=== PATIENT | female | born 1975 | race Two or more races ===

== ENCOUNTER 2016-10-18 00:58 | Emergency (ER) | payer MEDICAID, OTHER ==
[2016-10-18] MEDS ORDERED: EPINEPHRINE INJ/PF 1 MG/1 ML AMPULE IM ONE ×2 (02:21→02:52)
[2016-10-18] MEDS ORDERED: HYDROXYZINE HCL 10 MG TABLET PO ONE (02:52)
[2016-10-18] MEDS ORDERED: PREDNISONE 20 MG TABLET PO ONE (03:14)
--- NOTE | 2016-10-18 03:20 | ER Document Report ---
ED General - General Chief Complaint: Hives Stated Complaint: POSSIBLE HIVES Notes: Patient is a 41-year-old female who presents with 3 days of diffuse urticaria. Notes the rash is over her bilateral upper and lower extremities as well as her trunk. Denies history of similar symptoms in the past. She's been trying Benadryl without improvement of her symptoms. No history of allergic reactions in the past. She denies any throat swelling, shortness of breath, nausea, vomiting, diarrhea, abdominal pain, lightheadedness, syncope, or sensation of throat swelling. She has not seen her primary care physician regarding today's concerns. Nothing improves or worsens her symptoms. TRAVEL OUTSIDE OF THE [place] IN LAST 30 DAYS: No - Related Data Allergies/Adverse Reactions: No Known Allergies Allergy (Unverified 10/29/11 21:11) Past Medical History - General Information source: Patient - Social History Smoking Status: Never Smoker Frequency of alcohol use: None Drug Abuse: None Lives with: Family Family History: Reviewed & Not Pertinent - Past Medical History Cardiac Medical History: Reports: Hx Hypertension Endocrine Medical History: Reports: Hx Diabetes Mellitus Type 2 Past Surgical History: Reports: Hx Section - x3, Hx Hysterectomy - Immunizations Hx Diphtheria, Pertussis, Tetanus Vaccination: No Review of Systems - Review of Systems Notes: Constitutional: Negative for fever. HENT: Negative for sore throat. Eyes: Negative for visual changes. Cardiovascular: Negative for chest pain. Respiratory: Negative for shortness of breath. Gastrointestinal: Negative for abdominal pain, vomiting or diarrhea. Genitourinary: Negative for dysuria. Musculoskeletal: Negative for back pain. Skin: Positive for diffuse urticaria Neurological: Negative for headaches, weakness or numbness. 10 point ROS negative except as marked above and in HPI. Physical Exam - Vital signs Vitals: Temp Pulse Resp BP Pulse Ox 97.5 F 112 H 14 148/93 H 95 10/18/16 01:04 10/18/16 01:04 10/18/16 01:04 10/18/16 01:04 10/18/16 01:04 Interpretation: Hypertensive, Tachycardic Notes: PHYSICAL EXAMINATION: GENERAL: Well-appearing, well-nourished and in no acute distress. HEAD: Atraumatic, normocephalic. EYES: Pupils equal round and reactive to light, extraocular movements intact, sclera anicteric, conjunctiva are normal. ENT: nares patent, oropharynx clear without exudates. Moist mucous membranes. NECK: Normal range of motion, supple without lymphadenopathy LUNGS: Breath sounds clear to auscultation bilaterally and equal. No wheezes rales or rhonchi. HEART: Regular rate and rhythm without murmurs ABDOMEN: Soft, nontender, normoactive bowel sounds. No guarding, no rebound. No masses appreciated. EXTREMITIES: Normal range of motion, no pitting or edema. No cyanosis. NEUROLOGICAL: No focal neurological deficits. Moves all extremities spontaneously and on command. PSYCH: Normal mood, normal affect. SKIN: Warm, Dry, normal turgor, diffuse urticaria. Course - Re-evaluation Re-evalutation: 10/18/16 03:23 Patient presents with hives without evidence of respiratory, cardiovascular, or GI involvement. She is not tachycardic but vitals otherwise within normal limits. No acute distress. Exam other than diffuse hives is unremarkable. Patient did not have any improvement of her symptoms with 2 attempts of IM epinephrine. She will be started on steroids and Atarax. I recommended that she follow-up with dermatology and provided return precautions.At this time will discharge with return precautions and follow-up recommendations. Verbal discharge instructions given a the bedside and opportunity for questions given. Medication warnings reviewed. Patient is in agreement with this plan and has verbalized understanding of return precautions and the need for primary care follow-up in the next 24-72 hours. - Vital Signs Vital signs: Temp Pulse Resp BP Pulse Ox 97.5 F 112 H 14 148/93 H 95 10/18/16 01:04 10/18/16 01:04 10/18/16 01:04 10/18/16 01:04 10/18/16 01:04 Discharge - Discharge Clinical Impression: Diffuse urticaria Condition: Good Disposition: HOME, SELF-CARE Additional Instructions: You were seen for hives. This appears to be allergic in origin. You are being started on steroids and Atarax. Please take as directed. IF YOU DEVELOP DIFFICULTY BREATHING, VOMITING, THROAT SWELLING, OR LIGHTHEADEDNESS CALL 911. Prescriptions: Hydroxyzine HCl [Atarax 50 mg Tablet] 50 mg PO Q6HP PRN #30 tablet PRN Reason: Prednisone [Deltasone 20 mg Tablet] 60 mg PO DAILY #15 tablet
[2016-10-18 03:36] VITALS: BP 134/82
== END 2016-10-18 03:37 | disposition home or self-care (01) ==
LOC: ER 00:58
DX: L50.9 Urticaria, unspecified (principal); E11.9 Type 2 diabetes mellitus without complications; I10 Essential (primary) hypertension
CPT/HCPCS: 99282; 96372; J0171; J7512

== ENCOUNTER 2016-10-29 19:55 | Emergency (ER) | payer SELFPAY ==
--- NOTE | 2016-10-29 21:29 | ER Document Report ---
ED Medical Screen (RME) - General Stated Complaint: EAR PAIN Notes: head cold for about two weeks with associated. nasal congestion, sinus pressure , nonproductive cough, but today within a couple of hours had new onset right ear pain with pressure, sharp pain. denies any drainage or blood. She states " if feels like its going to burst" denies fever, chills, prod cough, chest pain also c/o hives which she states are mild currently. OTC: claritin D, was previously on prednisone PMH: DM type 2, HTN TRAVEL OUTSIDE OF THE [place] IN LAST 30 DAYS: No - Related Data Allergies/Adverse Reactions: No Known Allergies Allergy (Unverified 10/29/11 21:11) Past Medical History - Past Medical History Cardiac Medical History: Reports: Hx Hypertension Endocrine Medical History: Reports: Hx Diabetes Mellitus Type 2 Past Surgical History: Reports: Hx Section - x3, Hx Hysterectomy - Immunizations Hx Diphtheria, Pertussis, Tetanus Vaccination: No Physical Exam - Vital signs Vitals: Temp Pulse Resp BP Pulse Ox 98.3 F 103 H 18 149/96 H 97 10/29/16 21:17 10/29/16 21:17 10/29/16 21:17 10/29/16 21:17 10/29/16 21:17 Course - Vital Signs Vital signs: Temp Pulse Resp BP Pulse Ox 98.3 F 103 H 18 149/96 H 97 10/29/16 21:17 10/29/16 21:17 10/29/16 21:17 10/29/16 21:17 10/29/16 21:17
[2016-10-29] MEDS ORDERED: IBUPROFEN 600 MG TABLET PO ONE (21:30)
[2016-10-29] MEDS ORDERED: AZITHROMYCIN 250 MG TABLET PO ONE (23:11)
[2016-10-29] MEDS ORDERED: PREDNISONE 20 MG TABLET PO ONE (23:11)
[2016-10-29] MEDS ORDERED: DIPHENHYDRAMINE HCL 50 MG CAPSULE PO ONE (23:11)
[2016-10-29] MEDS ORDERED: FAMOTIDINE 20 MG TABLET PO ONE (23:11)
--- NOTE | 2016-10-29 23:18 | ER Document Report ---
ED General - General Chief Complaint: Cold Symptoms Stated Complaint: EAR PAIN Mode of Arrival: Ambulatory Information source: Patient Notes: 41-year-old female presents with 2 separate complaints. Patient notes she has had hives for 2 and half weeks, seen here and treated with Atarax and steroids symptoms improved but then returned after steroids was finished. Unsure causes. Today patient began having right ear pain TRAVEL OUTSIDE OF THE [place] IN LAST 30 DAYS: No - HPI Onset: Just prior to arrival Onset/Duration: Sudden Quality of pain: Achy Severity: Mild Pain Level: 1 Associated symptoms: Earache Exacerbated by: Denies Relieved by: Denies Similar symptoms previously: Yes Recently seen / treated by doctor: Yes - Related Data Allergies/Adverse Reactions: No Known Allergies Allergy (Verified 10/29/16 21:26) Past Medical History - Social History Smoking Status: Never Smoker Cigarette use (# per day): No Chew tobacco use (# tins/day): No Smoking Education Provided: No Drug Abuse: None Family History: Reviewed & Not Pertinent Patient has suicidal ideation: No Patient has homicidal ideation: No - Past Medical History Cardiac Medical History: Reports: Hx Hypertension Endocrine Medical History: Reports: Hx Diabetes Mellitus Type 2 Renal/ Medical History: Denies: Hx Peritoneal Dialysis Past Surgical History: Reports: Hx Section - x3, Hx Hysterectomy - Immunizations Hx Diphtheria, Pertussis, Tetanus Vaccination: No Review of Systems - Review of Systems Notes: REVIEW OF SYSTEMS: CONSTITUTIONAL : Denies fever, chills, or sweats. Denies recent illness. EENT: Right ear pain CARDIOVASCULAR: Denies chest pain. Denies palpitations or racing or irregular heart beat. Denies ankle edema. RESPIRATORY: Denies cough, cold, or chest congestion. Denies shortness of breath, difficulty breathing, or wheezing. GASTROINTESTINAL: Denies abdominal pain or distention. Denies nausea, vomiting , or diarrhea. Denies blood in vomitus, stools, or per rectum. Denies black, tarry stools. Denies constipation. GENITOURINARY: Denies difficulty urinating, painful urination, burning, frequency, blood in urine, or discharge. FEMALE GENITOURINARY: Denies vaginal bleeding, heavy or abnormal periods, irregular periods. Denies vaginal discharge or odor. MUSCULOSKELETAL: Denies back or neck pain or stiffness. Denies joint pain or swelling. SKIN: Hives on body HEMATOLOGIC : Denies easy bruising or bleeding. LYMPHATIC: Denies swollen, enlarged glands. NEUROLOGICAL: Denies confusion or altered mental status. Denies passing out or loss of consciousness. Denies dizziness or lightheadedness. Denies headache. Denies weakness or paralysis or loss of use of either side. Denies problems with gait or speech. Denies sensory loss, numbness, or tingling. Denies seizures. PSYCHIATRIC: Denies anxiety or stress. Denies depression, suicidal ideation, or homicidal ideation. ALL OTHER SYSTEMS REVIEWED AND NEGATIVE. Dictation was performed using [employer] voice recognition software PHYSICAL EXAMINATION: GENERAL: Well-appearing, well-nourished and in no acute distress. HEAD: Atraumatic, normocephalic. EYES: Pupils equal round and reactive to light, extraocular movements intact, conjunctiva are normal. ENT: Right TM pressure goal NECK: Normal range of motion, supple without lymphadenopathy LUNGS: Breath sounds clear to auscultation bilaterally and equal. No wheezes rales or rhonchi. HEART: Regular rate and rhythm without murmurs ABDOMEN: Soft, nontender, nondistended abdomen. No guarding, no rebound. No masses appreciated. Female : deferred Musculoskeletal: Normal range of motion, no pitting or edema. No cyanosis. NEUROLOGICAL: Cranial nerves grossly intact. Normal speech, normal gait. Normal sensory, motor exams PSYCH: Normal mood, normal affect. SKIN generalized hives Physical Exam - Vital signs Vitals: Temp Pulse Resp BP Pulse Ox 98.3 F 103 H 18 149/96 H 97 10/29/16 21:17 10/29/16 21:17 10/29/16 21:17 10/29/16 21:17 10/29/16 21:17 Course - Re-evaluation Re-evalutation: 10/29/16 23:21 Patient noted to have 2 separate complaints, she will be treated with medication for allergic reaction as well as antibiotics for ear infection patient given follow-up with urgent care for allergy testing After performing a Medical Screening Examination, I estimate there is LOW risk for AIRWAY COMPROMISE, ANAPHYLAXIS, CELLULITIS, EPIGLOTTIS, or NECROTIZING FASCIITIS, thus I consider the discharge disposition reasonable. Also, there is no evidence or peritonitis, sepsis, or toxicity. The patient and I have discussed the diagnosis and risks, and we agree with discharging home with close follow-up with the understanding that symptoms and presentations can change. We also discussed returning to the Emergency Department immediately if new or worsening symptoms occur. We have discussed the symptoms which are most concerning (e.g., difficulty breathing or swallowing, fever, changing or worsening pain) that necessitate immediate return. - Vital Signs Vital signs: Temp Pulse Resp BP Pulse Ox 98.3 F 103 H 18 149/96 H 97 10/29/16 21:17 10/29/16 21:17 10/29/16 21:17 10/29/16 21:17 10/29/16 21:17 Discharge - Discharge Clinical Impression: Hives Otitis media Qualifiers: Otitis media type: suppurative Laterality: right Chronicity: acute Recurrence: not specified as recurrent Spontaneous tympanic membrane rupture: without spontaneous rupture Qualified Code(s): H66.001 - Acute suppurative otitis media without spontaneous rupture of ear drum, right ear Condition: Stable Disposition: HOME, SELF-CARE Instructions: Otitis Media ([facility]) Additional Instructions: You have been given follow up instructions including low cost follow up with one of the local primary care offices. Follow up with them tomorrow for further care and reevaluation. Return immediately if symptoms worsen Prescriptions: Azithromycin 250 mg PO DAILY #4 tablet Azithromycin [Zithromax 250 mg Tablet] 250 mg PO DAILY #4 tablet Diphenhydramine HCl [Benadryl 50 mg Capsule] 1 cap PO Q6 PRN #20 capsule PRN Reason: Famotidine [Pepcid 20 mg Tablet] 20 mg PO DAILY #5 tablet Famotidine [Pepcid 20 mg Tablet] 20 mg PO DAILY #10 tablet Prednisone [Deltasone 20 mg Tablet] 3 tab PO DAILY 5 Days
[2016-10-29 23:46] VITALS: BP 129/88
== END 2016-10-29 23:44 | disposition home or self-care (01) ==
LOC: ER 19:55
DX: H66.001 Acute suppurative otitis media without spontaneous rupture of ear drum, right ear (principal); L50.9 Urticaria, unspecified
CPT/HCPCS: 99282; J7512

== ENCOUNTER 2016-11-20 08:20 | Emergency (ER) | payer BC ==
[2016-11-20 09:42] LABS: APPEARANCE,URINE CLEAR; BILIRUBIN,URINE NEGATIVE (NEGATIVE); GLUCOSE, URINE >=500 mg/dL (NEGATIVE); KETONES,URINE 80 mg/dL (NEGATIVE); LEUKOCYTE ESTERASE,URINE NEGATIVE (NEGATIVE); NITRITE,URINE NEGATIVE (NEGATIVE); PROTEIN,URINE NEGATIVE (NEGATIVE); URINE SPECIFIC GRAVITY 1.027; UROBILINOGEN,URINE NEGATIVE mg/dL (<2.0)
[2016-11-20 09:52] LABS: HEMATOCRIT 38.8 % (36.0-47.0); HEMOGLOBIN 13.1 g/dL (12.0-15.5); HGB HCT DIFFERENCE 0.5; MEAN CORPUSCULAR HEMOGLOBIN 27.7 pg (27.0-33.4); MEAN CORPUSCULAR HGB CONC 33.8 g/dL (32.0-36.0); MEAN CORPUSCULAR VOLUME 82 fl (80-97); RED BLOOD COUNT 4.74 10^6/uL (3.72-5.28); RED CELL DISTRIBUTION WIDTH 13.5 % (11.5-14.0); WHITE BLOOD COUNT 9.3 10^3/uL (4.0-10.5)
--- NOTE | 2016-11-20 10:18 | ER Document Report ---
ED General - General Chief Complaint: Chest Pain Stated Complaint: CHEST PAIN Mode of Arrival: Ambulatory Information source: Patient Notes: 41-year-old female presents with complaints of shortness of breath, heart racing ,mnausea, fevers and chills. pt notes symtpoms started since yesterday night, denies any dvt or pe risk factors TRAVEL OUTSIDE OF THE [place] IN LAST 30 DAYS: No - HPI Onset: Yesterday Onset/Duration: Sudden Quality of pain: Sharp Severity: Mild Pain Level: 1 Associated symptoms: Chills, Fever, Nausea, Shortness of breath Exacerbated by: Denies Relieved by: Denies Similar symptoms previously: No Recently seen / treated by doctor: Yes - Related Data Allergies/Adverse Reactions: No Known Allergies Allergy (Verified 11/20/16 08:59) Past Medical History - Social History Smoking Status: Never Smoker Cigarette use (# per day): No Chew tobacco use (# tins/day): No Smoking Education Provided: No Frequency of alcohol use: None Drug Abuse: None Family History: Reviewed & Not Pertinent Patient has suicidal ideation: No Patient has homicidal ideation: No - Past Medical History Cardiac Medical History: Reports: Hx Hypertension Endocrine Medical History: Reports: Hx Diabetes Mellitus Type 2 Renal/ Medical History: Denies: Hx Peritoneal Dialysis Past Surgical History: Reports: Hx Section - x3, Hx Hysterectomy - Immunizations Hx Diphtheria, Pertussis, Tetanus Vaccination: No Review of Systems - Review of Systems Notes: REVIEW OF SYSTEMS: CONSTITUTIONAL : admikts to fevers and cihlls EENT: Denies eye, ear, throat, or mouth pain or symptoms. Denies nasal or sinus congestion or discharge. Denies throat, tongue, or mouth swelling or difficulty swallowing. CARDIOVASCULAR: admits ot chest pain, sob RESPIRATORY: Admits shortness of breath chest pain GASTROINTESTINAL: Denies abdominal pain or distention. Denies nausea, vomiting , or diarrhea. Denies blood in vomitus, stools, or per rectum. Denies black, tarry stools. Denies constipation. GENITOURINARY: Denies difficulty urinating, painful urination, burning, frequency, blood in urine, or discharge. FEMALE GENITOURINARY: Denies vaginal bleeding, heavy or abnormal periods, irregular periods. Denies vaginal discharge or odor. MUSCULOSKELETAL: Denies back or neck pain or stiffness. Denies joint pain or swelling. SKIN: Denies rash, lesions or sores. HEMATOLOGIC : Denies easy bruising or bleeding. LYMPHATIC: Denies swollen, enlarged glands. NEUROLOGICAL: Denies confusion or altered mental status. Denies passing out or loss of consciousness. Denies dizziness or lightheadedness. Denies headache. Denies weakness or paralysis or loss of use of either side. Denies problems with gait or speech. Denies sensory loss, numbness, or tingling. Denies seizures. PSYCHIATRIC: Denies anxiety or stress. Denies depression, suicidal ideation, or homicidal ideation. ALL OTHER SYSTEMS REVIEWED AND NEGATIVE. Dictation was performed using [employer] voice recognition software PHYSICAL EXAMINATION: GENERAL: Well-appearing, well-nourished and in no acute distress. HEAD: Atraumatic, normocephalic. EYES: Pupils equal round and reactive to light, extraocular movements intact, conjunctiva are normal. ENT: Nares patent, oropharynx clear without exudates. Moist mucous membranes. NECK: Normal range of motion, supple without lymphadenopathy LUNGS: Breath sounds clear to auscultation bilaterally and equal. No wheezes rales or rhonchi. HEART: tachycardic ABDOMEN: Soft, nontender, nondistended abdomen. No guarding, no rebound. No masses appreciated. Female : deferred Musculoskeletal: Normal range of motion, no pitting or edema. No cyanosis. 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 SKIN: Warm, Dry, normal turgor, no rashes or lesions noted. Physical Exam - Vital signs Vitals: Temp Pulse Resp BP Pulse Ox 98.1 F 141 H 22 H 152/90 H 97 11/20/16 08:59 11/20/16 08:59 11/20/16 08:59 11/20/16 08:59 11/20/16 08:59 Course - Re-evaluation Re-evalutation: 11/20/16 10:18 Patient will be sent for CT of his chest 11/20/16 13:59 Patient was given 3 L of fluid, heart rate has gone from 140s down to 110, she states she feels much better, headache is resolved. Patient otherwise is in no distress I will discharge her home at this time Patient instructed to return immediately if there are any other concerns After performing a Medical Screening Examination, I estimate there is LOW risk for ACUTE CORONARY SYNDROME, RESPIRATORY FAILURE, SEPSIS OR MENINGITIS, thus I consider the discharge disposition reasonable. The patient and I have discussed the diagnosis and risks, and we agree with discharging home with close follow- up. We also discussed returning to the Emergency Department immediately if new or worsening symptoms occur. We have discussed the symptoms which are most concerning (e.g., changing or worsening pain, trouble swallowing or breathing, neck stiffness, fever) that necessitate immediate return. - Vital Signs Vital signs: Temp Pulse Resp BP Pulse Ox 98.1 F 141 H 20 128/78 H 95 11/20/16 08:59 11/20/16 08:59 11/20/16 13:00 11/20/16 12:00 11/20/16 13:00 - Laboratory Result Diagrams: 11/20/16 09:20 11/20/16 09:20 Laboratory results interpreted by me: 11/20/16 11/20/16 11/20/16 09:20 09:20 09:20 Band Neutrophils % 10 H Lymphocytes % (Manual) 8 L Metamyelocytes % 2 H Myelocytes % 1 H Abs Neuts (Manual) 8.3 H Sodium 130.3 L Chloride 95 L Carbon Dioxide 19 L BUN 6 L Creatinine 0.37 L Glucose 373 H Urine Glucose (UA) >=500 H Urine Ketones 80 H Discharge - Discharge Clinical Impression: Tachycardia URI (upper respiratory infection) Qualifiers: URI type: unspecified viral URI Qualified Code(s): J06.9 - Acute upper respiratory infection, unspecified; B97.89 - Other viral agents as the cause of diseases classified elsewhere Headache Qualifiers: Headache type: unspecified Headache chronicity pattern: acute headache Intractability: intractable Qualified Code(s): R51 - Headache Condition: Stable Disposition: HOME, SELF-CARE Instructions: Upper Respiratory Illness ([facility]) Referrals: JOSE COLLINS MD [Primary Care Provider] - Follow up tomorrow
[2016-11-20 10:20] LABS: ALANINE AMINOTRANSFERASE 31 U/L (9-52); ALBUMIN 4.2 g/dL (3.5-5.0); ALKALINE PHOSPHATASE 87 U/L (38-126); ANION GAP 16 (5-19); ASPARTATE AMINO TRANSFERASE 25 U/L (14-36); BILIRUBIN,TOTAL 1.2 mg/dL (0.2-1.3); BLOOD UREA NITROGEN 6 mg/dL (7-20); CALCIUM 9.3 mg/dL (8.4-10.2); CARBON DIOXIDE 19 mmol/L (22-30); CHLORIDE 95 mmol/L (98-107); CREATININE RESULT 0.37 mg/dL (0.52-1.25); GLUCOSE 373 mg/dL (75-110); POTASSIUM 4.4 mmol/L (3.6-5.0); SODIUM 130.3 mmol/L (137-145); TOTAL PROTEIN 7.2 g/dL (6.3-8.2)
[2016-11-20 10:23] LABS: BAND NEUTROPHILS % (MANUAL) 10 % (3-5); BASOPHILS % (MANUAL) 0 % (0-2); EOSINOPHILS % (MANUAL) 0 % (0-6); LYMPHOCYTES % (MANUAL) 8 % (13-45); NUCLEATED RED BLOOD CELLS 1 /100 WBC (0); TOTAL CELLS COUNTED 100
[2016-11-20 10:25] LABS: RBC MORPHOLOGY COMMENT NORMO-CYTIC/CHROMIC; TOXIC GRANULATION SLIGHT; TOXIC VACUOLATION PRESENT
--- NOTE | 2016-11-20 11:03 | EKG REPORT ---
SEVERITY:- OTHERWISE NORMAL ECG - SINUS TACHYCARDIA : Confirmed by: Jovita Soliman 20-Nov-2016 11:02:19
[2016-11-20] MEDS ORDERED: DIPHENHYDRAMINE HCL 50 MG/ML VIAL IV ONE (12:00)
[2016-11-20] MEDS ORDERED: NORMAL SALINE 1000 ML 1,000 ML IV PRN (12:00)
[2016-11-20] MEDS ORDERED: PROCHLORPERAZINE EDISYLATE INJ 10 MG/2 ML VIAL IV ONE (12:00)
[2016-11-20] MEDS ORDERED: KETOROLAC TROMETHAMINE INJ/PF 30 MG/1 ML SDV IV ONE (12:00)
[2016-11-20 15:02] VITALS: BP 105/72
[2016-11-23 15:11] LABS: PATH REVIEW PATHOLOGIST REVIEWED
== END 2016-11-20 15:02 | disposition home or self-care (01) ==
LOC: ER 08:20
DX: J06.9 Acute upper respiratory infection, unspecified (principal); B97.89 Other viral agents as the cause of diseases classified elsewhere; R00.0 Tachycardia, unspecified; R07.9 Chest pain, unspecified; R11.0 Nausea; R50.9 Fever, unspecified; R06.02 Shortness of breath; I10 Essential (primary) hypertension; E11.9 Type 2 diabetes mellitus without complications; Z90.710 Acquired absence of both cervix and uterus
CPT/HCPCS: 93005; 99285; 96361; 96374; 96375; 36415; 87070; 87880; 84443; 85025; 81025; 80053; 81001; 87804; 71020; 70450; 71275; 93010; J1200; J1885; J0780; J7030

== ENCOUNTER 2016-11-25 21:34 | Inpatient (IN) | payer BC ==
[2016-11-25] MEDS ORDERED: ASPIRIN 81 MG TABLET, CHEWABLE PO ONE (21:54)
--- NOTE | 2016-11-25 21:54 | ER Document Report ---
ED Medical Screen (RME) - General Stated Complaint: CHEST PAIN,SHORTNESS OF BREATH Time seen by provider: 21:50 Mode of Arrival: Wheelchair Information source: Patient Notes: 41 yo female presents to ed for chest pain severe on the left side, shortness of breath started around 2030. States feels like something is squeezing her heart and will not let go. LMP hysterectomy. States she was seen on 11/20/16 and was told the pain was viral infection. States this is the 5th time to ed this year. Patient was given a screening exam; xray, ekg, and labs ordered. Aspirin given in RME. TRAVEL OUTSIDE OF THE [place] IN LAST 30 DAYS: No - Related Data Allergies/Adverse Reactions: No Known Allergies Allergy (Verified 11/20/16 08:59) Past Medical History - Past Medical History Cardiac Medical History: Reports: Hx Hypertension Endocrine Medical History: Reports: Hx Diabetes Mellitus Type 2 Renal/ Medical History: Denies: Hx Peritoneal Dialysis Past Surgical History: Reports: Hx Section - x3, Hx Hysterectomy - Immunizations Hx Diphtheria, Pertussis, Tetanus Vaccination: No
[2016-11-25 22:15] LABS: HEMATOCRIT 37.2 % (36.0-47.0); HEMOGLOBIN 12.3 g/dL (12.0-15.5); HGB HCT DIFFERENCE -0.3; MEAN CORPUSCULAR HEMOGLOBIN 27.2 pg (27.0-33.4); MEAN CORPUSCULAR VOLUME 83 fl (80-97); RED BLOOD COUNT 4.51 10^6/uL (3.72-5.28); RED CELL DISTRIBUTION WIDTH 13.7 % (11.5-14.0); WHITE BLOOD COUNT 7.2 10^3/uL (4.0-10.5)
[2016-11-25 22:21] LABS: PROTHROMBIN TIME 12.3 SEC (11.4-15.4)
[2016-11-25 22:22] LABS: PARTIAL THROMBOPLASTIN TIME 27.1 SEC (23.5-35.8)
[2016-11-25 22:35] LABS: ALANINE AMINOTRANSFERASE 26 U/L (9-52); ALBUMIN 3.7 g/dL (3.5-5.0); ALKALINE PHOSPHATASE 119 U/L (38-126); ANION GAP 16 (5-19); ASPARTATE AMINO TRANSFERASE 8 U/L (14-36); BILIRUBIN,TOTAL 0.7 mg/dL (0.2-1.3); BLOOD UREA NITROGEN 7 mg/dL (7-20); CALCIUM 9.1 mg/dL (8.4-10.2); CARBON DIOXIDE 14 mmol/L (22-30); CHLORIDE 99 mmol/L (98-107); CREATININE RESULT 0.52 mg/dL (0.52-1.25); LIPASE 76.1 U/L (23-300); MAGNESIUM 1.8 mg/dL (1.6-2.3); POTASSIUM 4.1 mmol/L (3.6-5.0); TOTAL PROTEIN 6.9 g/dL (6.3-8.2)
[2016-11-25 22:37] LABS: CREATINE KINASE < 20 U/L (30-135)
[2016-11-25 22:44] LABS: CREATINE KINASE MB < 0.22 ng/mL (<4.55); TROPONIN I < 0.012 ng/mL
[2016-11-25 22:45] LABS: BAND NEUTROPHILS % (MANUAL) 3 % (3-5); BASOPHILS % (MANUAL) 0 % (0-2); EOSINOPHILS % (MANUAL) 1 % (0-6); LYMPHOCYTES % (MANUAL) 10 % (13-45); TOTAL CELLS COUNTED 100
[2016-11-25 22:47] LABS: POLYCHROMASIA SLIGHT; TOXIC GRANULATION SLIGHT
[2016-11-25 22:52] LABS: GLUCOSE 535 mg/dL (75-110)
[2016-11-25] MEDS ORDERED: NORMAL SALINE 1000 ML 1,000 ML IV PRN (22:53)
[2016-11-25] MEDS ORDERED: INSULIN REG, HUMAN 100 UNIT/ML 3 ML VIAL (PYX) SUBCUT ONE (23:50)
[2016-11-25] MEDS ORDERED: MORPHINE SULFATE 10 MG/ML INJ IV ONE (23:51)
[2016-11-26] MEDS ORDERED: NORMAL SALINE 100 ML with INSULIN REGULAR, HUMAN 100 UNIT IV PRN ×4 (00:24→08:40)
[2016-11-26] MEDS ORDERED: DEXTROSE 40% GEL 15 GM TUBE PO PRN ×5 (00:24→18:17)
[2016-11-26] MEDS ORDERED: GLUCAGON,HUMAN RECOMB 1 MG INJ IM PRN ×3 (00:24→18:17)
[2016-11-26] MEDS ORDERED: DEXTROSE 50%-WATER 25 GM/50 ML DISP.SYRIN IV PRN ×4 (00:24→08:40)
--- NOTE | 2016-11-26 01:00 | ER Document Report ---
ED General - General Chief Complaint: Chest Pain Stated Complaint: CHEST PAIN,SHORTNESS OF BREATH Mode of Arrival: Wheelchair Notes: Patient is a 41-year-old female presents with complaint of chest pain and tachycardia and not feeling well. She initially started out with hives and upper respiratory type symptoms that started October 18. She was treated with tapering steroids over the course of 2 weeks. The hives resolved. She then started having chest pain. She was seen here for chest pain [address] angios obtain which was negative. She is discharged home. Her chest pain is continued recur and she is feeling more weak and unwell. She presents today with his symptoms or not improving. She did see her primary care doctor placed her on Xanax which she says just made her feel unwell did not help her symptoms. Chest pain is worse when she lays flat. No fevers. No other complaints this time. She did hold her metformin for [address] scan. She restarted the metformin Wednesday night and has been taking ever since. Last time she had steroid was well over a week ago. No history coronary disease. No other complaints this time. TRAVEL OUTSIDE OF THE [place] IN LAST 30 DAYS: No - Related Data Allergies/Adverse Reactions: No Known Allergies Allergy (Verified 11/20/16 08:59) Past Medical History - General Information source: Patient - Social History Smoking Status: Never Smoker Frequency of alcohol use: Rare Drug Abuse: None Family History: Reviewed & Not Pertinent Patient has suicidal ideation: No Patient has homicidal ideation: No - Past Medical History Cardiac Medical History: Reports: Hx Hypertension Endocrine Medical History: Reports: Hx Diabetes Mellitus Type 2 Renal/ Medical History: Denies: Hx Peritoneal Dialysis Past Surgical History: Reports: Hx Section - x3, Hx Hysterectomy - Immunizations Hx Diphtheria, Pertussis, Tetanus Vaccination: No Review of Systems - Review of Systems Notes: My Normal Review Basic REVIEW OF SYSTEMS: CONSTITUTIONAL : Denies fever, chills, or sweats. Denies recent illness. EENT: Denies eye, ear, throat, or mouth pain or symptoms. Denies nasal or sinus congestion. CARDIOVASCULAR: Has chest pain RESPIRATORY: Some difficulty breathing. GASTROINTESTINAL: Denies abdominal pain. Denies nausea, vomiting, or diarrhea. Denies constipation. Last BM: MUSCULOSKELETAL: Denies neck or back pain or joint pain or swelling. SKIN: Denies rash or skin lesions. NEUROLOGICAL: Denies altered mental status or loss of consciousness. Denies headache. Denies weakness or paralysis or loss of use of either side. Denies problems with gait or speech. Denies sensory or motor loss. ALL OTHER SYSTEMS REVIEWED AND NEGATIVE. Physical Exam - Vital signs Vitals: Pulse Pulse Ox 122 H 100 11/25/16 21:49 11/25/16 21:49 - Notes Notes: General Appearance: Well nourished, alert, cooperative, no acute distress, no obvious discomfort. Weight appearing Vitals: reviewed, See vital signs table. Head: no swelling or tenderness to the head Eyes: PERRL, EOMI, Conjuctiva clear Mouth: No decreasd moisture Neck: Supple, no neck tenderness, No thyromegaly Lungs: No wheezing, No rales, No rhonci, No accessory muscle use, good air exchange bilaterally. Heart: Tachycardic rate, Regular rythm, No murmur, no rub Abdomen: Normal BS, soft, No rigidity, No abdominal tenderness, No guarding, no rebound, no abdominal masses, no organomegaly Extremities: strength 5/5 in all extremities, good pulses in all extremities, no swelling or tenderness in the extremities, no edema. Skin: warm, dry, appropriate color, no rash Neuro: speech clear, oriented x 3, normal affect, responds appropriately to questions. Course - Vital Signs Vital signs: Temp Pulse Resp BP Pulse Ox 97.6 F 123 H 20 125/77 99 11/25/16 21:54 11/25/16 21:54 11/25/16 21:54 11/25/16 21:54 11/25/16 21:54 - Laboratory Result Diagrams: 11/25/16 22:00 11/25/16 22:00 Laboratory results interpreted by me: 11/25/16 11/25/16 22:00 22:00 Lymphocytes % (Manual) 10 L Metamyelocytes % 1 H Sodium 129.0 L Carbon Dioxide 14 L Glucose 535 H* AST 8 L Creatine Kinase < 20 L - EKG Interpretation by Me Additional EKG results interpreted by me: 11/26/16 01:00 EKG is reviewed and interpreted by me. EKG shows sinus tachycardia with rate of [address] segment elevation or depression. No ischemic T wave inversions. DC level, QRS duration, QTC intervals are within normal range. No old EKG for comparison at this time. - Transfer of Care Notes: 11/26/16 01:00 This time I do not know the exact cause of patient's chest pain shortness of breath. Do not suspect coronary disease. This is her second negative troponin and 5 days. I suspect that she could have the potential for cardiomyopathy or pericarditis resulting from her recent illness. I'm also concerned that she's hyperglycemic and acidotic. She does not have an anion gap however her CO2 is only 14 and she's ketones in the urine. She could have some hyperglycemia from her steroid use; however, this was over a week ago and her sugar was actually much lower a few days ago as compared to now. She could also have some hyperglycemia due to the recent hold of her metformin from having a CT angio performed. I think is appropriate to admit her and give her fluids as well as insulin drip. I did do a bedside ultrasound showed no evidence of pericardial effusion. EKG doesn't show any ischemic changes. I did speak with the hospitalist who agrees in that the patient. Dictation of this chart was performed using voice recognition software; therefore, there may be some unintended grammatical errors. Discharge - Discharge Clinical Impression: Hyperglycemia, Metabolic acidosis, Tachycardia Chest pain Qualifiers: Chest pain type: unspecified Qualified Code(s): R07.9 - Chest pain, unspecified Condition: Stable Disposition: ADMITTED OBSERVATION Admitting Provider: Hospitalist Unit Admitted: IMCU Referrals: JOSE COLLINS MD [Primary Care Provider] - Follow up as needed
[2016-11-26 01:21] LABS: APPEARANCE,URINE CLEAR; BILIRUBIN,URINE NEGATIVE (NEGATIVE); GLUCOSE, URINE >=500 mg/dL (NEGATIVE); KETONES,URINE 80 mg/dL (NEGATIVE); LEUKOCYTE ESTERASE,URINE NEGATIVE (NEGATIVE); NITRITE,URINE NEGATIVE (NEGATIVE); PROTEIN,URINE NEGATIVE (NEGATIVE); URINE SPECIFIC GRAVITY 1.028; UROBILINOGEN,URINE NEGATIVE mg/dL (<2.0)
[2016-11-26 02:16] LABS: URINE BARBITURATES SCREEN NEGATIVE; URINE METHADONE SCREEN NEGATIVE; URINE OPIATES LOW NEGATIVE; URINE PHENCYCLIDINE SCREEN NEGATIVE
[2016-11-26] MEDS ORDERED: NORMAL SALINE 1000 ML 1,000 ML IV PRN (04:47)
[2016-11-26 05:45] LABS: ANION GAP 13 (5-19); BLOOD UREA NITROGEN 5 mg/dL (7-20); CALCIUM 8.3 mg/dL (8.4-10.2); CARBON DIOXIDE 13 mmol/L (22-30); CHLORIDE 107 mmol/L (98-107); CREATININE RESULT 0.36 mg/dL (0.52-1.25); GLUCOSE 268 mg/dL (75-110); POTASSIUM 3.4 mmol/L (3.6-5.0); SODIUM 133.2 mmol/L (137-145)
[2016-11-26] MEDS ORDERED: POTASSI CL 20 MEQ/D5NS 1L 20 MEQ/1,000 ML RTUINJ IV PRN (05:54)
[2016-11-26] MEDS ORDERED: RINGERS SOLUTION,LACTATED 2,000 ML IV ONE (05:56)
[2016-11-26] MEDS ORDERED: POTASSI CL 20 MEQ/50 ML RIDER 20 MEQ/50 ML RTUPB IV ONE (05:56)
[2016-11-26 07:09] LABS: HEMATOCRIT 29.8 % (36.0-47.0); HEMOGLOBIN 10.3 g/dL (12.0-15.5); HGB HCT DIFFERENCE 1.1; MEAN CORPUSCULAR HEMOGLOBIN 27.9 pg (27.0-33.4); MEAN CORPUSCULAR HGB CONC 34.5 g/dL (32.0-36.0); MEAN CORPUSCULAR VOLUME 81 fl (80-97); RED BLOOD COUNT 3.69 10^6/uL (3.72-5.28); RED CELL DISTRIBUTION WIDTH 13.6 % (11.5-14.0); WHITE BLOOD COUNT 7.8 10^3/uL (4.0-10.5)
[2016-11-26 07:42] LABS: BAND NEUTROPHILS % (MANUAL) 3 % (3-5); BASOPHILS % (MANUAL) 0 % (0-2); EOSINOPHILS % (MANUAL) 0 % (0-6); LYMPHOCYTES % (MANUAL) 12 % (13-45); TOTAL CELLS COUNTED 100
[2016-11-26 07:43] LABS: POLYCHROMASIA SLIGHT
[2016-11-26] MEDS ORDERED: INSULIN REG, HUMAN 100 UNIT/ML 3 ML VIAL (PYX) ONE (07:58)
--- NOTE | 2016-11-26 08:27 | EKG REPORT ---
SEVERITY:- OTHERWISE NORMAL ECG - SINUS TACHYCARDIA : Confirmed by: Niall Clay MD 26-Nov-2016 08:26:36
[2016-11-26] MEDS ORDERED: POTASSI CL 20 MEQ/50 ML RIDER 50 ML IV ONE (08:46)
[2016-11-26] MEDS ORDERED: MAG HYDROX/AL HYDROX/SIMETH SUSP 30 ML UDCUP PO PRN (08:47)
[2016-11-26] MEDS ORDERED: PROMETHAZINE HCL INJ 25 MG/1 ML VIAL IV PRN (08:56)
--- NOTE | 2016-11-26 09:46 | PDOC H&P ---
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 Patient has been discussed with emergency room physician who evaluated the patient. Current complaint is that of a mostly sharp left-sided chest pain that radiates to the right side and through to her back with associated mild shortness of breath and mild tachycardia. Pain Increases with cough and certain movements. States she finds it difficult to take a deep breath. Nausea but no vomiting. Rare cough. Bedside ultrasound by the emergency room physician failed to reveal any evidence of pericardial effusion. Was seen in the emergency room on the third of this month for similar but at that time a bit more right-sided chest pain. Workup at that time included an unremarkable CT angiogram of the chest. Pain has persisted since then, but is a bit more left-sided in origin. Subjective fever on the third of this month, but none since then. A bit of a difficult historian at times. No known personal history of cardiac disease. No prior myocardial infarction or congestive heart failure. No history of pulmonary embolus or DVT. No recent long trip with prolonged inactivity, or unusual lower extremity swelling or tenderness. No prior cardiac workup. Strong family history for coronary artery disease, however, in the persons of brother and father. Recent history is remarkable for an episode of hives and upper respiratory tract symptoms starting on the first of last month treated with a two-week course of tapering steroids. The hives initially quickly resolved,. They did recur shortly after stopping the steroids, but disappeared once again 5 days ago , and have not recurred. Held her metformin for 3 days after the above-noted CT angiogram; started back this past Wednesday night. No history of diabetic ketoacidosis. Otherwise compliant with her medications. Currently resting quietly, still having mostly left-sided upper chest pain, sharp in nature.. Laboratory results are listed in [facility] and are reviewed. X-ray summary results are listed below, with full report(s) reviewed. . EKG reviewed. 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 No use of tobacco or illicit drugs. Rare glass of wine. Allergies/adverse reactions NKDA. Home medications are reviewed by discussion with patient and have been reconciled by nursing staff in [facility]. Home medications initially autopopulated into [facility] may not accurately reflect patient's true medications, dosages, and/or frequencies. Compliant with medications. The only recent medication change has been the addition of omeprazole 2 days ago as a "trial" treatment, with primary care provider suspicions that reflux may be the source of her chest discomfort.. REVIEW OF SYSTEMS: Constitutional: See history and present illness. Eyes: Wears glasses. ENT: No swallowing problems or complaints. No hearing problems or complaints. Pulmonary: See history and present illness. Cardiovascular: See history and present illness. Gastrointestinal: See history and present illness. Skin: No current complaints, including rashes. Hematologic: No unusual easy bruising or bleeding. Neurologic: See history and present illness. Musculoskeletal: No current complaints, including painful joints. Psychiatric: No current complaints, including anxiety or depression. Endocrine: No current complaints, including polyuria. Genitourinary: No current complaints, including dysuria. PHYSICAL EXAMINATION: Temperature 100.1. Pulse 113 and regular. Blood pressure 112/61. Respirations are 18 and unlabored. 95% saturation on room air. 5 feet 4 inches. 91.3 kg. BMI 34.5 kg/m2. Initially daughter is present, subsequently mother present. Patient approves. Female emergency room nurse Reema initially present, followed by Ernestina. Obese female, who appears to feel a bit under the weather, so to speak, along with slightly fatigued. Pleasant awake alert and cooperative, however. No obvious distress other than mildly anxious. Skin is warm and dry. No grossly obvious evidence of rash in areas of skin examined. No subcutaneous nodules palpated. ENT: Hearing grossly normal to normal conversation. Tongue midline on protrusion pink and slightly tacky. Eyes: No scleral icterus. Pupils equal and reactive to light at 4 mm. [place] conjunctivae. slight right lid lag. Neck is supple and nontender to gentle active range of motion and palpation. Midline trachea. No palpable thyroid nodule mass enlargement or tenderness. Lymphatic: No palpable cervical or clavicular nodes. Neck and lymphatic exams limited by patient body habitus. Psychiatric: Reasonable insight into acute and chronic medical issues. Oriented to time location and why here. Lungs: Auscultation reveals clear and equal breath sounds bilaterally. No use of accessory respiratory muscles. Cardiovascular: Heart regular rate and rhythm, without gallop murmur or rub. No carotid or abdominal aortic bruits. No ankle or pedal edema. Faintly palpable dorsalis pedis pulses. Abdomen: soft, somewhat obese, nontender with positive bowel sounds. Unable to adequately evaluate abdomen for masses or organomegaly due to body habitus. Compression of upper abdomen seems to slightly reproduce her upper chest pain. Easily reproduced with compression of her upper medial left anterior chest wall. Some mild reproduction with both sternal and right-sided chest wall compression. Extremities: Feet are warm and dry. No calf tenderness to compression. No grossly obvious visual evidence of calf swelling. Gentle manipulation of lower extremities fails to reveal any obvious evidence of injury or instability to knees hips or ankles. Neurologic: Moves upper extremities grossly normally. Patellar reflexes absent. Absent Babinski. Light touch is intact at feet. Dorsiflexion and plantarflexion of feet 5 / 5 and symmetric. 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 Denies: Hemorrhagic CVA, Ischemic CVA, Seizures Endocrine Medical History: Reports: Diabetes Mellitus Type 2 Denies: Diabetes Mellitus Type 1, Hyperthyroidism, Hypothyroidism Renal/ Medical History: Reports: None GI Medical History: Denies: Cirrhosis, Gastroesophageal Reflux Disease, Hepatitis, Peptic Ulcer Disease Musculoskeltal Medical History: Reports: None Denies: Arthritis Skin Medical History: Reports: None Denies: Eczema, Psoriasis Psychiatric Medical History: Denies: Depression, General Anxiety Disorder Infectious Medical History: Denies: Hepatitis B, Hepatitis C Past Surgical History Past Surgical History: Reports: Section - x3, Hysterectomy Social History Information Source: Patient, Emergency Med Personnel, [facility] Records Lives with: Spouse/Significant other Smoking Status: Never Smoker Frequency of Alcohol Use: Rare Drugs: None - Advance Directive Resuscitation Status: Full Code Surrogate healthcare decision maker:: Family History Family History: CAD Parental Family History Reviewed: Yes Children Family History Reviewed: Yes Sibling(s) Family History Reviewed.: Yes Medication/Allergy Home Medications: Metformin HCl [Metformin HCl ER] 1,000 mg PO BID 11/26/16 RX: Lisinopril 10 mg PO DAILY 11/26/16 RX: Omeprazole 20 mg PO DAILY 11/26/16 Allergies/Adverse Reactions: No Known Allergies Allergy (Verified 11/20/16 08:59) Physical Exam Vital Signs: Temp Pulse Resp BP Pulse Ox 100.1 F 113 H 18 112/61 95 11/26/16 04:14 11/26/16 04:14 11/26/16 04:14 11/26/16 04:14 11/26/16 04:14 Results Laboratory Results: 11/26/16 06:42 11/26/16 05:15 11/26/16 11/26/16 05:15 06:42 WBC 7.8 RBC 3.69 L Hgb 10.3 L Hct 29.8 L MCV 81 MCH 27.9 MCHC 34.5 RDW 13.6 Plt Count 229 Seg Neutrophils % Not Reportable Lymphocytes % Not Reportable Monocytes % Not Reportable Eosinophils % Not Reportable Basophils % Not Reportable Absolute Neutrophils Not Reportable Absolute Lymphocytes Not Reportable Absolute Monocytes Not Reportable Absolute Eosinophils Not Reportable Absolute Basophils Not Reportable Sodium 133.2 L Potassium 3.4 L Chloride 107 Carbon Dioxide 13 L Anion Gap 13 BUN 5 L Creatinine 0.36 L Est GFR ( Amer) > 60 Est GFR (Non-Af Amer) > 60 Glucose 268 H Calcium 8.3 L 11/26/16 06:42 Troponin I < 0.012 Impressions: Chest X-Ray 11/25/16 21:55 IMPRESSION: NO SIGNIFICANT RADIOGRAPHIC FINDING IN THE CHEST. Assessment & Plan - Diagnosis (1) Anemia Qualifiers: Anemia type: unspecified type Qualified Code(s): D64.9 - Anemia, unspecified Is this a current diagnosis for this admission?: YesPlan: Follow-up CBC with differential. No need for transfusion at present time. 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 Insulin drip. Vigorous fluid hydration. Strict intake and output. Q 4 hours chemistry 7. Hourly Accu- Cheks. Addition of dextrose to intravenous fluid once serum glucose and/or Accu- Cheks 275 or less. Prevacid. Patient is full code. I have strongly encouraged patient not to get out of bed without notifying staff , to avoid a fall with injury. Knee high SCDs for DVT prophylaxis, along with subcutaneous Lovenox. Impression and plans were discussed with patient and family , who concur. Time spent in evaluation and management of patient: 75 minutes (3) Fever Qualifiers: Fever type: unspecified Qualified Code(s): R50.9 - Fever, unspecified Is this a current diagnosis for this admission?: YesPlan: No obvious source discovered. Cultures have been obtained, along with repeat CBC with differential. Follow Clinically this point in time. (4) Hypokalemia Is this a current diagnosis for this admission?: YesPlan: Potassium replacement; follow-up chemistry. (5) Precordial chest pain Is this a current diagnosis for this admission?: YesPlan: Although this likely is musculoskeletal in origin, given her risk factors, including her strong family history of coronary artery disease,Patient will be admitted under chest pain protocol. Patient understands to notify staff should chest pain recur. Serial troponin's . Repeat EKG. lipid panel. I have strongly encouraged patient not to get out of bed without notifying staff , to avoid a fall with injury. Cardiology consult. (6) Family history of early CAD Is this a current diagnosis for this admission?: Yes (7) HTN (hypertension) Qualifiers: Hypertension type: essential hypertension Qualified Code(s): I10 - Essential (primary) hypertension Is this a current diagnosis for this admission?: YesPlan: Resume home medications as appropriate once these have been reviewed. - Inpatient Certification Based on my medical assessment, after consideration of the patient's comorbidities, presenting symptoms, or acuity I expect that the services needed warrant INPATIENT care.: Yes I certify that my determination is in accordance with my understanding of Medicare's requirements for reasonable and necessary INPATIENT services [42 CFR 412.3e].: Yes Medical Necessity: Need For IV Fluids, Need For Continuous Telemetry Monitoring , Risk of Complication if Not Cared For in Hospital, Risk of Diagnosis Which Will Require Inpatient Eval/Care/Monitoring Post Hospital Care: D/C or Transfer Summary
[2016-11-26] MEDS ORDERED: LANSOPRAZOLE 30 MG TAB.RAP.DR PO ONE (10:15)
[2016-11-26 10:34] LABS: ANION GAP 10 (5-19); BLOOD UREA NITROGEN 3 mg/dL (7-20); CALCIUM 7.8 mg/dL (8.4-10.2); CARBON DIOXIDE 16 mmol/L (22-30); CHLORIDE 109 mmol/L (98-107); CREATININE RESULT 0.36 mg/dL (0.52-1.25); GLUCOSE 252 mg/dL (75-110); POTASSIUM 3.2 mmol/L (3.6-5.0); SODIUM 135.3 mmol/L (137-145)
[2016-11-26] MEDS: ASPIRIN 81 MG TABLET, ENT COATED PO SCH (11:00)
[2016-11-26] MEDS: ENOXAPARIN SODIUM INJ 40 MG/0.4 ML DISP.SYRIN SUBCUT SCH (11:00)
[2016-11-26] MEDS: LISINOPRIL 10 MG TABLET PO SCH (11:00)
[2016-11-26] MEDS ORDERED: IBUPROFEN 400 MG TABLET PO PRN (12:34)
[2016-11-26 13:59] LABS: ANION GAP 9 (5-19); BLOOD UREA NITROGEN 3 mg/dL (7-20); CALCIUM 8.1 mg/dL (8.4-10.2); CARBON DIOXIDE 16 mmol/L (22-30); CHLORIDE 111 mmol/L (98-107); CHOLESTEROL 175.83 mg/dL (0-200); CREATININE RESULT 0.33 mg/dL (0.52-1.25); Direct HDL 23 mg/dL (>40); GLUCOSE 185 mg/dL (75-110); POTASSIUM 3.6 mmol/L (3.6-5.0); SODIUM 135.9 mmol/L (137-145); TRIGLYCERIDES 250 mg/dL (<150)
[2016-11-26 14:10] LABS: DIRECT LDL 112 mg/dL (<100)
[2016-11-26 17:24] LABS: ANION GAP 10 (5-19); BLOOD UREA NITROGEN 2 mg/dL (7-20); CALCIUM 8.2 mg/dL (8.4-10.2); CARBON DIOXIDE 16 mmol/L (22-30); CHLORIDE 108 mmol/L (98-107); CREATININE RESULT 0.37 mg/dL (0.52-1.25); GLUCOSE 119 mg/dL (75-110); POTASSIUM 3.3 mmol/L (3.6-5.0)
[2016-11-26] MEDS ORDERED: DEXTROSE 50%-WATER SYRINGE 12.5 GM/25 ML DOSE IV PRN (18:17)
[2016-11-26] MEDS ORDERED: DEXTROSE 50%-WATER SYRINGE 25 GM/50 ML DOSE IV PRN (18:17)
[2016-11-26] MEDS ORDERED: DEXTROSE 40% GEL 15 GM TUBE X 2 PO PRN (18:17)
[2016-11-26] MEDS: POTASSI CL 20 MEQ/NS 1L 1000 ML IV PRN (18:35)
[2016-11-26] MEDS: LANSOPRAZOLE 30 MG TAB.RAP.DR PO SCH (18:40)
--- NOTE | 2016-11-26 18:43 | XCELERA REPORT ---
[address] [id number] Transthoracic Echocardiogram Report Name: MARIAN DENISE Age: 41 yrs Gender: Female : 1975 Patient Status: Inpatient Patient Location: \S\[facility]\S\A Study Date: 11/26/2016 10:58 AM Height: 64 in Weight: 201 lb BSA: 2.0 m2 Procedure: A complete two-dimensional transthoracic echocardiogram was performed (2D, M-mode, spectral and color flow Doppler). The study was technically difficult with many images being suboptimal in quality. Reason For Study: chest pain Ordering Physician: JOVITA ALLEN Performed By: Alisha Nuñez Interpretation Summary The left ventricular ejection fraction is normal. There is borderline concentric left ventricular hypertrophy. The left ventricle is grossly normal size. Doppler measurements suggest impaired left ventricular relaxation, which is associated with grade I/IV or mild diastolic dysfunction Wall motion cannot be accurately commented on, but no definite regional wall motion abnormalities noted. The right ventricle is mildly dilated. The right ventricular systolic function is normal. The right atrium is mildly dilated. The left atrial size is normal. There is a trace amount of mitral regurgitation There is no mitral valve stenosis. There is no aortic valve stenosis No aortic regurgitation is present. There is a trace or physiologic amount of tricuspid regurgitation Tricuspid regurgitation jet envelope not well defined to measure RV systolic pressure accurately. The aortic root is not well visualized but is probably normal size. There is no pericardial effusion. MMode/2D Measurements \T\ Calculations RVDd: 3.1 cm LVIDd: 4.6 cm FS: 39.2 % Ao root diam: 2.8 cm IVSd: 1.0 cm LVIDs: 2.8 cm EDV(Teich): 98.1 ml LVPWd: 0.99 cmESV(Teich): 29.7 ml Ao root area: 6.4 cm2 EF(Teich): 69.8 % LA dimension: 3.6 cm LVOT diam: 2.0 cm LVOT area: 3.2 cm2 Doppler Measurements \T\ Calculations MV E max mk: MV P1/2t max mk: Ao V2 max: LV V1 max P.1 cm/sec 103.7 cm/sec 155.1 cm/sec 4.7 mmHg MV A max mk: MV P1/2t: 47.2 msec Ao max PG: LV V1 max: 73.1 cm/sec MVA(P1/2t): 4.7 cm2 9.6 mmHg 108.1 cm/sec MV E/A: 1.4 MV dec slope: IESHA(V,D): 2.2 cm2 643.0 cm/sec2 MV dec time: 0.15 sec PA V2 max: TR max mk: 88.8 cm/sec 257.4 cm/sec PA max PG: TR max P.5 mmHg 3.2 mmHg Left Ventricle The left ventricle is grossly normal size. There is borderline concentric left ventricular hypertrophy. The left ventricular ejection fraction is normal. Doppler measurements suggest impaired left ventricular relaxation, which is associated with grade I/IV or mild diastolic dysfunction. Wall motion cannot be accurately commented on, but no definite regional wall motion abnormalities noted. Right Ventricle The right ventricle is mildly dilated. There is normal right ventricular wall thickness. The right ventricular systolic function is normal. Atria The right atrium is mildly dilated. The left atrial size is normal. Interarterial septum not well visualized and not well dopplered. Cannot comment on ASD/PFO presence. Mitral Valve The mitral valve is grossly normal. There is no mitral valve stenosis. There is a trace amount of mitral regurgitation. Aortic Valve The aortic valve is grossly normal. There is no aortic valve stenosis. No aortic regurgitation is present. Tricuspid Valve The tricuspid valve is not well visualized secondary to technical limitations. There is no tricuspid stenosis. There is a trace or physiologic amount of tricuspid regurgitation. Tricuspid regurgitation jet envelope not well defined to measure RV systolic pressure accurately. Pulmonic Valve The pulmonic valve is not well visualized. Great Vessels The aortic root is not well visualized but is probably normal size. The inferior vena cava was not well visualized. Effusions There is no pericardial effusion. : JOVITA ALLEN > Jovita Allen
[2016-11-26] MEDS: DIPHENHYDRAMINE HCL 50 MG CAPSULE PO PRN (20:44)
--- NOTE | 2016-11-26 21:09 | PDOC CONSULTATION ---
Consultation Consult Date: 11/26/16 Attending physician:: ANSLEY MICHELLE Consult reason:: Chest pain History of Present Illness Admission Date/PCP: 11/26/16 08:48 JOSE COLLINS MD Patient complains of: Chest pain History of Present Illness: MARIAN DENISE is a 41 year old female, with underlying hypertension, type II diabetes mellitus, who has been experiencing intermittent chest pains who presents through the emergency room for the second time in less than a week for evaluation of above complaint and was subsequently admitted. I been asked to evaluate her because of recurrent chest pain. Patient complains mostly sharp left-sided chest pain that radiates to the right side and through to her back with associated mild shortness of breath and mild tachycardia. Pain Increases with cough and certain movements. States she finds it difficult to take a deep breath. Nausea but no vomiting. Rare cough. A previous CTA performed just a few days ago was negative for pulmonary embolism. No known personal history of cardiac disease. No prior myocardial infarction or congestive heart failure. No history of pulmonary embolus or DVT. No recent long trip with prolonged inactivity, or unusual lower extremity swelling or tenderness. No prior cardiac workup. Strong family history for coronary artery disease, however, in the persons of brother and father. Recent history is remarkable for an episode of hives and upper respiratory tract symptoms starting on the first of last month treated with a two-week course of tapering steroids. The hives initially quickly resolved,. They did recur shortly after stopping the steroids, but disappeared once again 5 days ago , and have not recurred. Above history was reviewed. Agree with above history. Patient denied any prior history of blood clots in the legs or in the lungs, history of pericarditis, pleurisy or any history of rheumatologic disorder. 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 Denies: Hemorrhagic CVA, Ischemic CVA, Seizures Endocrine Medical History: Reports: Diabetes Mellitus Type 2 Denies: Diabetes Mellitus Type 1, Hyperthyroidism, Hypothyroidism Renal/ Medical History: Reports: None GI Medical History: Denies: Cirrhosis, Gastroesophageal Reflux Disease, Hepatitis, Peptic Ulcer Disease Musculoskeltal Medical History: Reports: None Denies: Arthritis Skin Medical History: Reports: None Denies: Eczema, Psoriasis Psychiatric Medical History: Denies: Depression, General Anxiety Disorder Infectious Medical History: Denies: Hepatitis B, Hepatitis C Past Surgical History Past Surgical History: Reports: Section - x3, Hysterectomy Social History Information Source: Patient Lives with: Spouse/Significant other Smoking Status: Never Smoker Frequency of Alcohol Use: Rare Drugs: None - Advance Directive Resuscitation Status: Full Code Family History Family History: CAD Parental Family History Reviewed: Yes Children Family History Reviewed: Yes Sibling(s) Family History Reviewed.: Yes - Positive for premature coronary artery disease in the family. Medication/Allergy Home Medications: Lisinopril 10 mg PO DAILY 11/26/16 Metformin HCl [Metformin HCl ER] 1,000 mg PO BID 11/26/16 Omeprazole 20 mg PO DAILY 11/26/16 Allergies/Adverse Reactions: No Known Allergies Allergy (Verified 11/20/16 08:59) Review of Systems Review of Systems: Please see history of present illness and past medical history as wall. Constitutional: History of intermittent fever reported. History of recent hives , fatigue and tiredness. Head : No recent chronic headaches, recent head injury. Eyes: No recent eye pain, diplopia, redness, discharge, acute visual changes. Ears: No recent chronic ear pain, acute hearing loss, ear discharge. Oral cavity: No recent ulcerations, bleeding, oral cavity discomfort. Neck: No recent acute neck pain reported. Hematologic: No recent easy bruising or bleeding or hematologic malignancy reported. Lymphatic: No recent lymphatic malignancy, chronic lymphadenopathy reported yet Cardiovascular system review: See history of present illness. Respiratory system review: No recent chronic cough, hemoptysis, blood clots in the lungs reported. Mild Shortness of breath on exertion Gastrointestinal system review: Negative for any recent acute or chronic abdominal pain, hematemesis, melena, recent change in bowel habits. Genitourinary system review: No recent acute or chronic hematuria, flank pain, UTI etc. reported. Skin system review: Negative for any recent abnormal bruising, no rash, no pruritus reported. Neurologic: No prior history of strokes, mini strokes, seizure disorder. Psychologic: No history of major psychosis or depression reported. Musculoskeletal: Minor aches and pains reported. No acute joint swelling reported. Left-sided chest pain as noted above Endocrine: No recent polyuria, polydipsia, recent heat or cold intolerance. Patient has history of diabetes. Physical Exam Vital Signs: Temp Pulse Resp BP Pulse Ox 100.5 F H 103 H 20 113/80 97 11/26/16 20:46 11/26/16 09:54 11/26/16 20:00 11/26/16 20:05 11/26/16 20:05 Exam: GENERAL: well-nourished and in no acute distress. Alert and oriented x3 HEAD: Atraumatic, normocephalic. EYES: Pupils equal round and reactive to light, extraocular movements intact, sclera anicteric, conjunctiva are normal. ENT: TMs normal, nares patent, oropharynx clear without exudates. Moist mucous membranes. No oral ulcerations or bleeding gums noted NECK: supple without lymphadenopathy. Trachea is central. No cervical or axillary lymphadenopathy noted. Carotids are 2+, JVD WNL LUNGS: Respiration seems nonlabored, no significant accessory muscle action noted. Breath sounds clear to auscultation bilaterally and equal. No wheezes rales or rhonchi. No significant dullness noted on percussion. CHEST: Palpation of the chest wall shows no significant chest wall tenderness or abnormalities. 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 ABDOMEN: Soft, no significant tenderness appreciated, normoactive bowel sounds. No guarding, no rebound. No rigidity noted . No masses appreciated. EXTREMITIES: Pedal pulses are 1-2+, no calf tenderness noted. No clubbing or cyanosis.1+ pedal edema noted NEUROLOGICAL: Focused neurological exam showed no significant neurologic deficit. Normal speech, no focal weakness appreciated. PSYCH: Normal mood, normal affect. Judgment and insight within normal limits. SKIN: No significant ecchymosis, rash, ulcerations or signs of pruritus noted. MUSCULOSKELETAL EXAM: No significant joint swelling noted. Results Laboratory Results: 11/26/16 17:00 11/26/16 11/26/16 11/26/16 10:09 13:27 17:00 Sodium 135.3 L 135.9 L 134.0 L Potassium 3.2 L 3.6 3.3 L Chloride 109 H 111 H 108 H Carbon Dioxide 16 L 16 L 16 L Anion Gap 10 9 10 BUN 3 L 3 L 2 L Creatinine 0.36 L 0.33 L 0.37 L Est GFR ( Amer) > 60 > 60 > 60 Est GFR (Non-Af Amer) > 60 > 60 > 60 Glucose 252 H 185 H 119 H Calcium 7.8 L 8.1 L 8.2 L Triglycerides 250 H Cholesterol 175.83 LDL Cholesterol Direct 112 H VLDL Cholesterol 50.0 H HDL Cholesterol 23 L 11/26/16 13:27 Troponin I < 0.012 EKG Comments: Sinus tachycardia, no acute ST-T wave changes noted Impressions: Chest X-Ray 11/25/16 21:55 IMPRESSION: NO SIGNIFICANT RADIOGRAPHIC FINDING IN THE CHEST. Assessment & Plan - Diagnosis (1) Chest pain Qualifiers: Chest pain type: unspecified Qualified Code(s): R07.9 - Chest pain, unspecified (2) HTN (hypertension) Qualifiers: Hypertension type: essential hypertension Qualified Code(s): I10 - Essential (primary) hypertension Is this a current diagnosis for this admission?: Yes (3) Obesity Qualifiers: Obesity severity: unspecified obesity severity Is this a current diagnosis for this admission?: Yes (4) Diabetes mellitus type II, uncontrolled Qualifiers: Diabetes mellitus complication status: with unspecified complications Diabetes mellitus terminal manager insulin use: unspecified terminal manager insulin use status Qualified Code(s): E11.8 - Type 2 diabetes mellitus with unspecified complications; E11.65 - Type 2 diabetes mellitus with hyperglycemia Is this a current diagnosis for this admission?: YesPlan: Patient noted to have hyperglycemia. - Notes Notes: Chest pain:Chest pain: Patient has some typical and atypical features of chest pain. Cardiac enzymes so far has been negative. Electrocardiogram did not show any definitive ST segment changes. Multiple differential diagnoses exist in this patient. In descending order of probability this includes underlying coronary artery disease, gastroesophageal reflux, musculoskeletal pain, referred pain from elsewhere, anxiety panic disorder etc.Patient has significant cardiac risk factors, which indicates that there is a intermediate probability of chest discomfort coming from underlying CAD. Feel that it would need to be evaluated further. Discussed evaluation to assess this. In this regard risk benefits of nuclear stress test and other alternative processes were discussed in detail. The patient prefers to undergo nuclear stress test. The small risk of radiation, myocardial infarction, , cardiac arrhythmias, respiratory distress etc. were discussed. Patient understood the risks and gave informed consent. Nuclear stress test was therefore scheduled. For risk evaluation, patient is also being scheduled for a 2-D echocardiogram. Patient questions were answered. Diabetes: Recommend good control of blood sugar. However should avoid any hypoglycemia. Patient being expertly managed by primary care MDanita Hypertension:Blood pressure goal in this patient is 135/85 or less. This was discussed with the patient. Currently blood pressure under reasonable control. Better medication for this patient are CHARLOTTE inhibitor/ARB/beta angie etc. discussed side effects of uncontrolled hypertension and also severe hypotension. Obesity: Patient encouraged in weight loss and regular walking program. - Time Time Spent: 30 to 50 Minutes - CODE STATUS was discussed, patient remains full code. Surrogate decision-maker patient's . Multiple medical problems were addressed.More than 50% of the time spent coordinating care, discussing management plans with involved caregivers. Management plans discussed with involved personnels. Medical decision making was of moderate complexity.
[2016-11-26] MEDS: BENZONATATE 100 MG CAPSULE PO SCH (21:30)
[2016-11-26 21:34] LABS: ANION GAP 11 (5-19); BLOOD UREA NITROGEN 2 mg/dL (7-20); CALCIUM 8.5 mg/dL (8.4-10.2); CARBON DIOXIDE 17 mmol/L (22-30); CHLORIDE 105 mmol/L (98-107); CREATININE RESULT 0.42 mg/dL (0.52-1.25); GLUCOSE 192 mg/dL (75-110); POTASSIUM 3.8 mmol/L (3.6-5.0); SODIUM 132.5 mmol/L (137-145)
[2016-11-26] MEDS: INSULIN REG, HUMAN 100 UNIT/ML 3 ML VIAL (PYX) SUBCUT PRN (22:57)
[2016-11-27 01:38] LABS: ANION GAP 9 (5-19); CALCIUM 8.4 mg/dL (8.4-10.2); CARBON DIOXIDE 16 mmol/L (22-30); CHLORIDE 109 mmol/L (98-107); CREATININE RESULT 0.37 mg/dL (0.52-1.25); GLUCOSE 220 mg/dL (75-110); POTASSIUM 3.7 mmol/L (3.6-5.0)
[2016-11-27 01:43] LABS: BLOOD UREA NITROGEN < 2 mg/dL (7-20)
[2016-11-27] MEDS: INSULIN REG, HUMAN 100 UNIT/ML 3 ML VIAL (PYX) SUBCUT PRN ×5 (02:04→22:31)
[2016-11-27] MEDS: POTASSI CL 20 MEQ/NS 1L 1000 ML IV PRN ×3 (02:50→17:46)
[2016-11-27] MEDS: LANSOPRAZOLE 30 MG TAB.RAP.DR PO SCH ×2 (05:33→17:05)
[2016-11-27] MEDS: BENZONATATE 100 MG CAPSULE PO SCH ×3 (05:33→21:47)
[2016-11-27 06:07] LABS: HEMATOCRIT 29.5 % (36.0-47.0); HEMOGLOBIN 10.1 g/dL (12.0-15.5); HGB HCT DIFFERENCE 0.8; MEAN CORPUSCULAR HEMOGLOBIN 27.8 pg (27.0-33.4); MEAN CORPUSCULAR HGB CONC 34.4 g/dL (32.0-36.0); MEAN CORPUSCULAR VOLUME 81 fl (80-97); RED BLOOD COUNT 3.64 10^6/uL (3.72-5.28); RED CELL DISTRIBUTION WIDTH 13.8 % (11.5-14.0); WHITE BLOOD COUNT 6.6 10^3/uL (4.0-10.5)
[2016-11-27 06:23] LABS: ANION GAP 10 (5-19); CALCIUM 8.5 mg/dL (8.4-10.2); CARBON DIOXIDE 17 mmol/L (22-30); CHLORIDE 110 mmol/L (98-107); CREATININE RESULT 0.37 mg/dL (0.52-1.25); GLUCOSE 213 mg/dL (75-110); POTASSIUM 3.4 mmol/L (3.6-5.0); SODIUM 137.3 mmol/L (137-145)
[2016-11-27 06:24] LABS: BLOOD UREA NITROGEN < 2 mg/dL (7-20)
[2016-11-27 06:47] LABS: BAND NEUTROPHILS % (MANUAL) 1 % (3-5); BASOPHILS % (MANUAL) 0 % (0-2); EOSINOPHILS % (MANUAL) 1 % (0-6); LYMPHOCYTES % (MANUAL) 23 % (13-45); TOTAL CELLS COUNTED 100
[2016-11-27 06:48] LABS: RBC MORPHOLOGY COMMENT NORMO-CYTIC/CHROMIC; TOXIC GRANULATION SLIGHT; TOXIC VACUOLATION PRESENT
[2016-11-27] MEDS: ASPIRIN 81 MG TABLET, ENT COATED PO SCH (11:07)
[2016-11-27] MEDS: LISINOPRIL 10 MG TABLET PO SCH (11:07)
[2016-11-27] MEDS: ENOXAPARIN SODIUM INJ 40 MG/0.4 ML DISP.SYRIN SUBCUT SCH (11:09)
[2016-11-27] MEDS ORDERED: GLIMEPIRIDE 1 MG TABLET PO ONE (11:30)
[2016-11-27] MEDS ORDERED: POTASSIUM CHLORIDE 10 MEQ TABLET.SA PO ONE (11:30)
[2016-11-27 11:36] LABS: ANION GAP 11 (5-19); BLOOD UREA NITROGEN < 2 mg/dL (7-20); CALCIUM 8.9 mg/dL (8.4-10.2); CARBON DIOXIDE 18 mmol/L (22-30); CHLORIDE 110 mmol/L (98-107); CREATININE RESULT 0.35 mg/dL (0.52-1.25); GLUCOSE 289 mg/dL (75-110); POTASSIUM 3.5 mmol/L (3.6-5.0); SODIUM 138.8 mmol/L (137-145)
[2016-11-27] MEDS ORDERED: LEVOFLOXACIN 750 MG TABLET PO SCH (12:00)
[2016-11-27] MEDS: LEVALBUTEROL HCL NEB 1.25 MG/3 ML AMPUL NEB PRN ×4 (13:13→20:18)
--- NOTE | 2016-11-27 13:25 | DRAGON STRESS TEST REPORT ---
INTRAVENOUS LEXISCAN CARDIOLITE STRESS TEST USING SINGLE PHOTON EMMISION COMPUTERIZED TOMOGRAPHIC. DATE OF PROCEDURE: November 27, 2016 INDICATION : Chest pain CARDIAC RISK FACTORS: Diabetes, hypertension RESTING EKG: Sinus rhythm, no Baseline ST-T wave changes noted STRESS EKG: No significant changes noted with LexiScan bolus REASON FOR TERMINATION: Protocol. PROCEDURE REPORT: Baseline heart rate 106 beats per minute with blood pressure of 128/73. Patient had no significant complaints. Heart rate at 2 minutes post bolus 123 with a blood pressure of 134/67. 3 minutes post bolus heart rate 122 with blood pressure of 134/70. No significant EKG changes were noted. Patient had no significant complaints during the procedure or postprocedure. CONCLUSIONS: Normal EKG and hemodynamic response to IV LexiScan. NUCLEAR DATA: At rest the patient was given 14.04 millicuries of technetium 99 sestamibi injected intravenously. As per protocol rest gated SPECT images were obtained. Subsequently the patient was given intravenous LexiScan at a dose of 0.4 mg in 5 mL intravenously, followed by flush with normal saline. Subsequently the stress dose of 41.6 millicuries of technetium 99 sestamibi was injected intravenously. As per protocol stress gated images were obtained. NUCLEAR INTERPRETATION: Both raw and processed data were used for interpretation. Visual, qualitative, computer-generated quantitative data was used. There was good myocardial uptake of technetium compound. Motion artifact and soft tissue attenuations were noted. Increased visceral uptake was noted. No definitive areas of transient perfusion defect noted. No definitive areas of fixed perfusion defect or scars noted. EKG gated imaging showed LV EF at 69 %, rest and stress gated EF similar visually. T. I D. ratio was 1.08. Lung heart ratio noted to be within normal limits 0.23. No significant extracardiac and abnormal radiotracer activities were noted. RV free wall uptake was noted to be WNL IMPRESSION: Also refer to comments under nuclear interpretation. Also test results needs to be interpreted in the context of pretest probability. 1. There is no definitive scintigraphic evidence of LexiScan induced myocardial ischemia. 2. There is no definitive scintigraphic evidence of myocardial infarction/scar. 3. EKG gated imaging shows left ejection fraction of approximately 69 %. 4. Clinical correlation requested as occasionally single vessel disease or balanced ischemia could be missed. In approximately 10% of the cases Lexiscan may not cause adequate vasodilatory stress. RECOMMENDATIONS: Aggressive risk factor modification, medical therapy. Clinical correlation with echocardiogram derived ejection fraction. Inability to exercise by itself can lead to increased cardiovascular event risks. Consider cardiology consultation if clinically indicated. I AM AVAILABLE FOR CARDIOLOGY CONSULTATION AND FOLLOWUP IF REQUESTED BY PMD Jovita Soliman M.D., MRCP Product Planner insole tape stitcher [facility], Board certified in cardiovascular diseases, Nuclear cardiology, Echocardiography Cardiac CT and cardiac MRI Ph. [phone] [facility]
[2016-11-27] MEDS ORDERED: REGADENOSON INJ 0.4 MG/5 ML DISP.SYRIN IV ONE (13:29)
[2016-11-27 14:21] LABS: ANION GAP 15 (5-19); CALCIUM 9.1 mg/dL (8.4-10.2); CARBON DIOXIDE 18 mmol/L (22-30); CHLORIDE 106 mmol/L (98-107); CREATININE RESULT 0.39 mg/dL (0.52-1.25); GLUCOSE 268 mg/dL (75-110); POTASSIUM 3.7 mmol/L (3.6-5.0); SODIUM 139.2 mmol/L (137-145)
[2016-11-27 14:23] LABS: BLOOD UREA NITROGEN < 2 mg/dL (7-20)
[2016-11-27] MEDS ORDERED: HYDROCODONE BIT/HOMATROPINE 5-1.5 MG TABLET PO ONE (16:15)
[2016-11-27] MEDS: ACETAMINOPHEN 325 MG TABLET PO PRN ×2 (16:23→20:19)
--- NOTE | 2016-11-27 17:39 | PDOC PROGRESS REPORT ---
Subjective Progress Note for:: 11/27/16 Subjective:: Patient has a lot of coughing and pleurisy. Still having some fever. Intermittent wheezing was noted as well. No nausea or vomiting at this time. No diarrhea. Chest x-ray suggestive of pneumonia. Physical Exam Vital Signs: Temp Pulse Resp BP Pulse Ox 99.5 F 115 H 22 H 160/86 H 96 11/27/16 15:29 11/27/16 16:02 11/27/16 16:02 11/27/16 15:29 11/27/16 16:02 Intake & Output 11/26/16 11/27/16 11/28/16 06:59 06:59 06:59 Intake Total 1275 740 Output Total 1700 Balance 1275 -960 General appearance: PRESENT: no acute distress, cooperative, obese Head exam: PRESENT: normocephalic Eye exam: PRESENT: EOMI, PERRLA Mouth exam: PRESENT: moist, neck supple Neck exam: ABSENT: JVD Respiratory exam: PRESENT: unlabored, other - Harsh breath sounds in the left. ABSENT: rhonchi, wheezes Cardiovascular exam: PRESENT: RRR. ABSENT: gallop GI/Abdominal exam: PRESENT: hypoactive bowel sounds, soft. ABSENT: distended, tenderness Extremities exam: ABSENT: pedal edema Skin exam: PRESENT: dry, warm. ABSENT: cyanosis Results Laboratory Results: 11/27/16 05:57 11/27/16 13:51 11/26/16 11/27/16 11/27/16 21:15 01:19 05:57 WBC RBC Hgb Hct MCV MCH MCHC RDW Plt Count Seg Neutrophils % Lymphocytes % Monocytes % Eosinophils % Basophils % Absolute Neutrophils Absolute Lymphocytes Absolute Monocytes Absolute Eosinophils Absolute Basophils Sodium 132.5 L 134.0 L 137.3 Potassium 3.8 3.7 3.4 L Chloride 105 109 H 110 H Carbon Dioxide 17 L 16 L 17 L Anion Gap 11 9 10 BUN 2 L < 2 L < 2 L Creatinine 0.42 L 0.37 L 0.37 L Est GFR ( Amer) > 60 > 60 > 60 Est GFR (Non-Af Amer) > 60 > 60 > 60 Glucose 192 H 220 H 213 H Calcium 8.5 8.4 8.5 11/27/16 11/27/16 11/27/16 05:57 11:06 13:51 WBC 6.6 RBC 3.64 L Hgb 10.1 L Hct 29.5 L MCV 81 MCH 27.8 MCHC 34.4 RDW 13.8 Plt Count 238 Seg Neutrophils % Not Reportable Lymphocytes % Not Reportable Monocytes % Not Reportable Eosinophils % Not Reportable Basophils % Not Reportable Absolute Neutrophils Not Reportable Absolute Lymphocytes Not Reportable Absolute Monocytes Not Reportable Absolute Eosinophils Not Reportable Absolute Basophils Not Reportable Sodium 138.8 139.2 Potassium 3.5 L 3.7 Chloride 110 H 106 Carbon Dioxide 18 L 18 L Anion Gap 11 15 BUN < 2 L < 2 L Creatinine 0.35 L 0.39 L Est GFR ( Amer) > 60 > 60 Est GFR (Non-Af Amer) > 60 > 60 Glucose 289 H 268 H Calcium 8.9 9.1 11/26/16 13:27 Troponin I < 0.012 Impressions: Chest X-Ray 11/27/16 00:00 IMPRESSION: Question lingular airspace disease atelectasis versus pneumonia. Assessment & Plan - Diagnosis (1) Pneumonia Qualifiers: Pneumonia type: due to unspecified organism Laterality: left Lung location: unspecified part of lung Qualified Code(s): J18.9 - Pneumonia, unspecified organism Is this a current diagnosis for this admission?: Yes (2) Diabetes mellitus type II, uncontrolled Qualifiers: Diabetes mellitus complication status: with unspecified complications Diabetes mellitus senior care insulin use: unspecified senior care insulin use status Qualified Code(s): E11.8 - Type 2 diabetes mellitus with unspecified complications; E11.65 - Type 2 diabetes mellitus with hyperglycemia ; 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 Is this a current diagnosis for this admission?: Yes (3) Metabolic acidosis Is this a current diagnosis for this admission?: Yes (4) Precordial chest pain Is this a current diagnosis for this admission?: Yes (5) Anemia Qualifiers: Anemia type: unspecified type Qualified Code(s): D64.9 - Anemia, unspecified Is this a current diagnosis for this admission?: Yes (6) Hypokalemia Is this a current diagnosis for this admission?: Yes (7) HTN (hypertension) Qualifiers: Hypertension type: essential hypertension Qualified Code(s): I10 - Essential (primary) hypertension Is this a current diagnosis for this admission?: Yes - Time Time Spent with patient: 25-34 minutes Within: within 48 hours - Plan Summary Plan Summary: We will begin antibiotics with Levaquin. Give antitussives. Continue IV hydration. Patient will be placed on sliding scale before meals and at bedtime. We will begin Amaryl. Continue supportive care.
[2016-11-27 18:13] LABS: ANION GAP 13 (5-19); CALCIUM 8.4 mg/dL (8.4-10.2); CARBON DIOXIDE 16 mmol/L (22-30); CHLORIDE 104 mmol/L (98-107); CREATININE RESULT 0.37 mg/dL (0.52-1.25); GLUCOSE 254 mg/dL (75-110); POTASSIUM 3.5 mmol/L (3.6-5.0)
[2016-11-27 18:14] LABS: BLOOD UREA NITROGEN < 2 mg/dL (7-20)
--- NOTE | 2016-11-27 19:42 | PDOC PROGRESS REPORT ---
Subjective Progress Note for:: 11/27/16 Subjective:: Patient seems to be doing better with gradual improvement. Patient still having low-grade fever, cough and sputum production. She still has some intermittent chest pain but improved. Patient denying any PND, orthopnea. Patient denied any sustained palpitations, dizziness, syncope, near syncope. Patient denying any fever chills. Patient denying any other significant discomfort. Patient is maintaining sinus rhythm. Review of systems: Rest review of systems negative. Medications: Medications have been reviewed. Nuclear stress test procedure was explained to the patient in detail. Risks benefits were discussed and informed consent was obtained. Alternatives were discussed. Patient informed that based on risk factors, physical exam, lab data findings and symptoms there is at least intermediate probability of underlying CAD. Nuclear stress test procedure was therefore scheduled. Physical Exam Vital Signs: Temp Pulse Resp BP Pulse Ox 99.5 F 115 H 22 H 160/86 H 96 11/27/16 15:29 11/27/16 16:02 11/27/16 16:02 11/27/16 15:29 11/27/16 16:02 Intake & Output 11/26/16 11/27/16 11/28/16 06:59 06:59 06:59 Intake Total 1275 740 Output Total 1700 Balance 1275 -960 Exam: GENERAL: well-nourished and in no acute distress. Alert and oriented x3 HEAD: Atraumatic, normocephalic. EYES: Pupils equal round and reactive to light, extraocular movements intact, sclera anicteric, conjunctiva are normal. ENT: TMs normal, nares patent, oropharynx clear without exudates. Moist mucous membranes. No oral ulcerations or bleeding gums noted NECK: supple without lymphadenopathy. Trachea is central. No cervical or axillary lymphadenopathy noted. Carotids are 2+, JVD WNL LUNGS: Respiration seems nonlabored, no significant accessory muscle action noted. Breath sounds clear to auscultation bilaterally and equal noted. No wheezes rales or rhonchi noted. No significant dullness noted on percussion. CHEST: Palpation of the chest wall shows no significant chest wall tenderness or abnormalities. 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 ABDOMEN: Soft, no significant tenderness appreciated, normoactive bowel sounds. No guarding, no rebound. No rigidity noted . No masses appreciated. EXTREMITIES: Pedal pulses are 1-2+, no calf tenderness noted. No clubbing or cyanosis.trace to 1+ pedal edema noted NEUROLOGICAL: Focused neurological exam showed no significant neurologic deficit. Normal speech, no focal weakness appreciated. PSYCH: Normal mood, normal affect. Judgment and insight within normal limits. SKIN: No significant ecchymosis, rash, ulcerations or signs of pruritus noted. MUSCULOSKELETAL EXAM: No significant joint swelling noted. Results Laboratory Results: 11/27/16 05:57 11/27/16 17:43 11/26/16 11/27/16 11/27/16 21:15 01:19 05:57 WBC RBC Hgb Hct MCV MCH MCHC RDW Plt Count Seg Neutrophils % Lymphocytes % Monocytes % Eosinophils % Basophils % Absolute Neutrophils Absolute Lymphocytes Absolute Monocytes Absolute Eosinophils Absolute Basophils Sodium 132.5 L 134.0 L 137.3 Potassium 3.8 3.7 3.4 L Chloride 105 109 H 110 H Carbon Dioxide 17 L 16 L 17 L Anion Gap 11 9 10 BUN 2 L < 2 L < 2 L Creatinine 0.42 L 0.37 L 0.37 L Est GFR ( Amer) > 60 > 60 > 60 Est GFR (Non-Af Amer) > 60 > 60 > 60 Glucose 192 H 220 H 213 H Calcium 8.5 8.4 8.5 11/27/16 11/27/16 11/27/16 05:57 11:06 13:51 WBC 6.6 RBC 3.64 L Hgb 10.1 L Hct 29.5 L MCV 81 MCH 27.8 MCHC 34.4 RDW 13.8 Plt Count 238 Seg Neutrophils % Not Reportable Lymphocytes % Not Reportable Monocytes % Not Reportable Eosinophils % Not Reportable Basophils % Not Reportable Absolute Neutrophils Not Reportable Absolute Lymphocytes Not Reportable Absolute Monocytes Not Reportable Absolute Eosinophils Not Reportable Absolute Basophils Not Reportable Sodium 138.8 139.2 Potassium 3.5 L 3.7 Chloride 110 H 106 Carbon Dioxide 18 L 18 L Anion Gap 11 15 BUN < 2 L < 2 L Creatinine 0.35 L 0.39 L Est GFR ( Amer) > 60 > 60 Est GFR (Non-Af Amer) > 60 > 60 Glucose 289 H 268 H Calcium 8.9 9.1 11/27/16 17:43 WBC RBC Hgb Hct MCV MCH MCHC RDW Plt Count Seg Neutrophils % Lymphocytes % Monocytes % Eosinophils % Basophils % Absolute Neutrophils Absolute Lymphocytes Absolute Monocytes Absolute Eosinophils Absolute Basophils Sodium 133.0 L Potassium 3.5 L Chloride 104 Carbon Dioxide 16 L Anion Gap 13 BUN < 2 L Creatinine 0.37 L Est GFR ( Amer) > 60 Est GFR (Non-Af Amer) > 60 Glucose 254 H Calcium 8.4 11/26/16 13:27 Troponin I < 0.012 Impressions: Chest X-Ray 11/27/16 00:00 IMPRESSION: Question lingular airspace disease atelectasis versus pneumonia. Assessment & Plan - Diagnosis (1) Chest pain Qualifiers: Chest pain type: unspecified Qualified Code(s): R07.9 - Chest pain, unspecified (2) HTN (hypertension) Qualifiers: Hypertension type: essential hypertension Qualified Code(s): I10 - Essential (primary) hypertension Is this a current diagnosis for this admission?: Yes (3) Obesity Qualifiers: Obesity severity: unspecified obesity severity Is this a current diagnosis for this admission?: Yes (4) Diabetes mellitus type II, uncontrolled Qualifiers: Diabetes mellitus complication status: with unspecified complications Diabetes mellitus usp insulin use: unspecified usp insulin use status Qualified Code(s): E11.8 - Type 2 diabetes mellitus with unspecified complications; E11.65 - Type 2 diabetes mellitus with hyperglycemia ; Z79.4 - superintendent terminal (current) use of insulin Is this a current diagnosis for this admission?: Yes (5) Sleep disorder breathing Is this a current diagnosis for this admission?: YesPlan: Patient describes history of present daytime fatigue and tiredness. She also has difficulty falling asleep and staying asleep. She has occasional snoring. - Notes Notes: Chest pain: Patient claims chest pain is improved. This was evaluated with a nuclear stress test. Nuclear stress test was negative for any significant areas of ischemia or any significant areas of scar. The nuclear stress test is felt to be relatively low risk. Patient informed that occasionally single- vessel disease and balanced ischemia could be missed. Patient advised aggressive risk factor modification and medical therapy. Patient informed that further evaluation may become necessary if symptoms worsens or there is a development of new symptoms indicative of angina or angina equivalent symptom. Hypertension: Blood pressure goal in this patient is 135/85 or less. This was discussed with the patient. Currently blood pressure under reasonable control. Better medication for this patient are CHARLOTTE inhibitor/ARB/beta angie etc. discussed side effects of uncontrolled hypertension and also severe hypotension. Recommend good control of blood sugar. However should avoid any hypoglycemia. Patient being expertly managed by primary care Anaya Obesity Discussed adverse effect of overweight/obesity on cardiovascular event rate, sleep apnea, diabetes and hypertension et cetera. Patient has been recommended weight loss. Patient advised in weight loss. In this regard portion control, substitution, calorie restriction and regular exercise plan discussed. Patient informed that I would be happy to help for outpatient management of weight loss. Risk associated with being overweight and obesity discussed. This included both mechanical and metabolic complications. Sleep disorder: This is suspect that based on patient's symptoms of snoring, daytime fatigue and somnolence. Patient also has difficulty falling asleep and staying asleep. Patient has obesity and oropharyngeal exams suggest high probability of underlying sleep apnea syndrome. Have discussed this with the patient. Discussed increased risk of cardiovascular event rate, cerebrovascular accident, cardiac arrhythmias, uncontrolled hypertension etc. as being associated with untreated sleep apnea. Discussed that we'll be happy to schedule this as an outpatient. Patient has been recommended weight loss, sleep hygiene. Patient was seen multiple times. Total time exceeds 40 minutes. In the morning nuclear stress test procedure, risks benefits, alternatives were discussed. Patient seen during the stress test. Patient also seen after stress test when results were discussed with the patient in detail. Patient's questions were answered. Nuclear stress test results were discussed with the patient. Patient was informed that no definitive evidence of pharmacologic stress- induced ischemia noted. No definite fixed defects were noted. Patient informed that occasionally significant single vessel disease or balanced ischemia could be missed. However based on the current study results, would recommend aggressive risk factor modification and medical therapy. It may also be worthwhile to consider evaluation or empiric management of other causes of chest pain. Should no other cause be found and if persistent in having chest pain, then cardiac catheterization should be considered. Right now, recommendations are for aggressive risk factor modification and medical management. - Time Time with patient: Greater than 35 minutes - CODE STATUS was discussed, patient remains full code. Surrogate decision-maker unchanged. Multiple medical problems were addressed.More than 50% of the time spent coordinating care, discussing management plans with involved caregivers. Management plans discussed with involved personnels. Medical decision making was of moderate complexity. Medications reviewed and adjusted accordingly: Yes
[2016-11-27] MEDS ORDERED: POTASSIUM CHLORIDE 20 MEQ/15 ML UDCUP PO ONE (21:45)
[2016-11-27 22:01] LABS: ANION GAP 14 (5-19); CALCIUM 8.7 mg/dL (8.4-10.2); CARBON DIOXIDE 17 mmol/L (22-30); CHLORIDE 103 mmol/L (98-107); CREATININE RESULT 0.37 mg/dL (0.52-1.25); GLUCOSE 238 mg/dL (75-110); POTASSIUM 3.4 mmol/L (3.6-5.0); SODIUM 133.9 mmol/L (137-145)
[2016-11-27 22:04] LABS: BLOOD UREA NITROGEN < 2 mg/dL (7-20)
[2016-11-27] MEDS: HYDROCODONE BIT/HOMATROPINE 5-1.5 MG TABLET PO PRN (22:31)
[2016-11-28] MEDS: ACETAMINOPHEN 325 MG TABLET PO PRN (01:01)
[2016-11-28] MEDS: LEVALBUTEROL HCL NEB 1.25 MG/3 ML AMPUL NEB PRN ×4 (01:24→11:57)
[2016-11-28 01:36] LABS: ANION GAP 14 (5-19); CALCIUM 8.7 mg/dL (8.4-10.2); CARBON DIOXIDE 19 mmol/L (22-30); CHLORIDE 103 mmol/L (98-107); CREATININE RESULT 0.45 mg/dL (0.52-1.25); GLUCOSE 221 mg/dL (75-110); POTASSIUM 3.7 mmol/L (3.6-5.0); SODIUM 135.9 mmol/L (137-145)
[2016-11-28 01:41] LABS: BLOOD UREA NITROGEN < 2 mg/dL (7-20)
[2016-11-28] MEDS: INSULIN REG, HUMAN 100 UNIT/ML 3 ML VIAL (PYX) SUBCUT PRN ×3 (03:06→12:19)
[2016-11-28] MEDS: LANSOPRAZOLE 30 MG TAB.RAP.DR PO SCH (05:18)
[2016-11-28] MEDS: BENZONATATE 100 MG CAPSULE PO SCH ×2 (05:18→14:01)
[2016-11-28 05:27] LABS: ANION GAP 13 (5-19); CALCIUM 8.6 mg/dL (8.4-10.2); CARBON DIOXIDE 17 mmol/L (22-30); CHLORIDE 104 mmol/L (98-107); GLUCOSE 230 mg/dL (75-110); POTASSIUM 3.6 mmol/L (3.6-5.0); SODIUM 134.1 mmol/L (137-145)
[2016-11-28 05:30] LABS: BLOOD UREA NITROGEN < 2 mg/dL (7-20)
[2016-11-28] MEDS ORDERED: GLIMEPIRIDE 1 MG TABLET PO SCH (08:00)
[2016-11-28] MEDS: HYDROCODONE BIT/HOMATROPINE 5-1.5 MG TABLET PO PRN (08:20)
[2016-11-28] MEDS: ENOXAPARIN SODIUM INJ 40 MG/0.4 ML DISP.SYRIN SUBCUT SCH (09:13)
[2016-11-28] MEDS: LISINOPRIL 10 MG TABLET PO SCH (09:14)
[2016-11-28] MEDS: ASPIRIN 81 MG TABLET, ENT COATED PO SCH (09:14)
[2016-11-28 09:43] LABS: ANION GAP 14 (5-19); CALCIUM 8.5 mg/dL (8.4-10.2); CARBON DIOXIDE 17 mmol/L (22-30); CHLORIDE 103 mmol/L (98-107); CREATININE RESULT 0.36 mg/dL (0.52-1.25); GLUCOSE 253 mg/dL (75-110); POTASSIUM 3.4 mmol/L (3.6-5.0); SODIUM 133.7 mmol/L (137-145)
[2016-11-28 09:47] LABS: BLOOD UREA NITROGEN < 2 mg/dL (7-20)
[2016-11-28] MEDS ORDERED: LEVOFLOXACIN 750 MG/D5W RTU 150 ML IV SCH (10:00)
--- NOTE | 2016-11-28 13:09 | PDOC PROGRESS REPORT ---
Subjective Progress Note for:: 11/28/16 Subjective:: Patient seems to be doing better with gradual improvement. Patient still having low-grade fever, cough and sputum production. She still has some intermittent chest pain but improved. Patient denying any PND, orthopnea. Patient denied any sustained palpitations, dizziness, syncope, near syncope. Patient denying any fever chills. Patient denying any other significant discomfort. Patient is maintaining sinus rhythm. Review of systems: Rest review of systems negative. Medications: Medications have been reviewed. . Physical Exam Vital Signs: Temp Pulse Resp BP Pulse Ox 98.8 F 98 16 107/67 98 11/28/16 11:25 11/28/16 11:57 11/28/16 11:57 11/28/16 11:25 11/28/16 11:57 Intake & Output 11/27/16 11/28/16 11/29/16 06:59 06:59 06:59 Intake Total 1275 4940 Output Total 6800 Balance 1275 -1860 Weight 98.1 kg Exam: GENERAL: well-nourished and in no acute distress. Alert and oriented x3 HEAD: Atraumatic, normocephalic. EYES: Pupils equal round and reactive to light, extraocular movements intact, sclera anicteric, conjunctiva are normal. ENT: TMs normal, nares patent, oropharynx clear without exudates. Moist mucous membranes. No oral ulcerations or bleeding gums noted NECK: supple without lymphadenopathy. Trachea is central. No cervical or axillary lymphadenopathy noted. Carotids are 2+, JVD WNL LUNGS: Respiration seems nonlabored, no significant accessory muscle action noted. Breath sounds clear to auscultation bilaterally and equal noted. No wheezes rales or rhonchi noted. No significant dullness noted on percussion. CHEST: Palpation of the chest wall shows mild chest wall tenderness but no other abnormalities. 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 ABDOMEN: Soft, no significant tenderness appreciated, normoactive bowel sounds. No guarding, no rebound. No rigidity noted . No masses appreciated. EXTREMITIES: Pedal pulses are 1-2+, no calf tenderness noted. No clubbing or cyanosis.trace to 1+ pedal edema noted NEUROLOGICAL: Focused neurological exam showed no significant neurologic deficit. Normal speech, no focal weakness appreciated. PSYCH: Normal mood, normal affect. Judgment and insight within normal limits. SKIN: No significant ecchymosis, rash, ulcerations or signs of pruritus noted. MUSCULOSKELETAL EXAM: No significant joint swelling noted. Results Laboratory Results: 11/27/16 05:57 11/28/16 09:11 11/27/16 11/27/16 11/27/16 13:51 17:43 21:41 Sodium 139.2 133.0 L 133.9 L Potassium 3.7 3.5 L 3.4 L Chloride 106 104 103 Carbon Dioxide 18 L 16 L 17 L Anion Gap 15 13 14 BUN < 2 L < 2 L < 2 L Creatinine 0.39 L 0.37 L 0.37 L Est GFR ( Amer) > 60 > 60 > 60 Est GFR (Non-Af Amer) > 60 > 60 > 60 Glucose 268 H 254 H 238 H Calcium 9.1 8.4 8.7 11/28/16 11/28/16 11/28/16 01:12 04:55 09:11 Sodium 135.9 L 134.1 L 133.7 L Potassium 3.7 3.6 3.4 L Chloride 103 104 103 Carbon Dioxide 19 L 17 L 17 L Anion Gap 14 13 14 BUN < 2 L < 2 L < 2 L Creatinine 0.45 L 0.40 L 0.36 L Est GFR ( Amer) > 60 > 60 > 60 Est GFR (Non-Af Amer) > 60 > 60 > 60 Glucose 221 H 230 H 253 H Calcium 8.7 8.6 8.5 11/26/16 13:27 Troponin I < 0.012 Impressions: Chest X-Ray 11/27/16 00:00 IMPRESSION: Question lingular airspace disease atelectasis versus pneumonia. Assessment & Plan - Diagnosis (1) Chest pain Qualifiers: Chest pain type: unspecified Qualified Code(s): R07.9 - Chest pain, unspecified (2) HTN (hypertension) Qualifiers: Hypertension type: essential hypertension Qualified Code(s): I10 - Essential (primary) hypertension Is this a current diagnosis for this admission?: Yes (3) Obesity Qualifiers: Obesity severity: unspecified obesity severity Is this a current diagnosis for this admission?: Yes (4) Diabetes mellitus type II, uncontrolled Qualifiers: Diabetes mellitus complication status: with unspecified complications Diabetes mellitus usp insulin use: unspecified usp insulin use status Qualified Code(s): E11.8 - Type 2 diabetes mellitus with unspecified complications; E11.65 - Type 2 diabetes mellitus with hyperglycemia ; Z79.4 - halfway (current) use of insulin Is this a current diagnosis for this admission?: Yes (5) Sleep disorder breathing Is this a current diagnosis for this admission?: Yes - Notes Notes: Chest pain: Patient has atypical features of chest pain. Cardiac enzymes so far has been negative. Electrocardiogram did not show any definitive ST segment changes. Nuclear stress test results were reviewed with the patient and is was negative for significant ischemia. Recommend analgesics. Patient may have a complement of fibromyalgia and also anxiety disorder. Patient may benefit from sleep study. This was explained to the patient. Hypertension: Reasonably well controlled. Blood pressure goal in this patient is 135/85 or less. This was discussed with the patient. Currently blood pressure under reasonable control. Better medication for this patient are CHARLOTTE inhibitor/ARB/beta angie etc. discussed side effects of uncontrolled hypertension and also severe hypotension. Diabetes: Recommend good control of blood sugar. However should avoid any hypoglycemia. Patient being expertly managed by primary care M.D. Sleep disordered breathing: This is suspect that based on patient's symptoms of intermittent snoring, daytime fatigue and somnolence. Patient also has difficulty falling asleep and staying asleep. Patient has obesity and oropharyngeal exams suggest high probability of underlying sleep apnea syndrome. Patient would benefit from a sleep study and this can be scheduled as an outpatient. Obesity: Patient encouraged in weight loss. Nuclear stress test results were again reviewed with the patient and her mother. We also discussed results of the 2-D echocardiogram and hospital course so far. Patient encouraged to increase her activity gradually. Patient will benefit from close cardiology follow-up. - Time Time with patient: Greater than 35 minutes - CODE STATUS was discussed, patient remains full code. Surrogate decision-maker unchanged. Multiple medical problems were addressed.More than 50% of the time spent coordinating care, discussing management plans with involved caregivers. Management plans discussed with involved personnels. Medical decision making was of moderate complexity.
[2016-11-28] MEDS ORDERED: LEVOFLOXACIN 750 MG TABLET PO SCH (14:00)
[2016-11-28 14:02] LABS: ANION GAP 14 (5-19); CALCIUM 8.8 mg/dL (8.4-10.2); CARBON DIOXIDE 19 mmol/L (22-30); CHLORIDE 102 mmol/L (98-107); CREATININE RESULT 0.38 mg/dL (0.52-1.25); GLUCOSE 267 mg/dL (75-110); SODIUM 135.3 mmol/L (137-145)
[2016-11-28 14:05] LABS: POTASSIUM 3.3 mmol/L (3.6-5.0)
[2016-11-28] MEDS: DIPHENHYDRAMINE HCL 50 MG CAPSULE PO PRN (14:06)
[2016-11-28 14:07] LABS: BLOOD UREA NITROGEN < 2 mg/dL (7-20)
[2016-11-28] MEDS ORDERED: POTASSIUM CHLORIDE 10 MEQ TABLET.SA PO ONE (15:15)
--- NOTE | 2016-11-28 15:30 | PDOC DISCHARGE SUMMARY ---
General - Admit/Disc Date/PCP Admission Date/Primary Care Provider: 11/26/16 08:48 JOSE COLLINS MD Discharge Date: 11/28/16 - Discharge Diagnosis (1) Pneumonia Is this a current diagnosis for this admission?: Yes (2) Diabetes mellitus type II, uncontrolled Is this a current diagnosis for this admission?: Yes (3) Metabolic acidosis Is this a current diagnosis for this admission?: Yes (4) Precordial chest pain Is this a current diagnosis for this admission?: Yes (5) Anemia Is this a current diagnosis for this admission?: Yes (6) Hypokalemia Is this a current diagnosis for this admission?: Yes (7) HTN (hypertension) Is this a current diagnosis for this admission?: Yes - Additional Information Resuscitation Status: Full Code Discharge Diet: Cardiac - low-fat low-salt, Diabetic - no concentrated sweets Discharge Activity: Activity As Tolerated, Balance Activity w/Rest, Slowly Increase Activity Home Medications: Lisinopril 10 mg PO DAILY 11/26/16 Omeprazole 20 mg PO DAILY 11/26/16 Albuterol Sulfate [Proair HFA] 2 puff IH Q4 PRN #1 inhaler 11/28/16 Aspirin [Ecotrin 81 mg EC Tablet] 81 mg PO DAILY tabec 11/28/16 Glimepiride [Amaryl 1 mg Tablet] 2 mg PO [id number] #30 tablet 11/28/16 Hydrocodone Bit/Homatropine [Hycodan 5-1.5 mg Tablet] 1 tab PO Q6HP PRN #30 tablet 11/28/16 Levofloxacin [Levaquin 750 mg Tablet] 750 mg PO DAILY@1400 #8 tablet 11/28/16 Additional Information: Measure BS 3x/day and record, bring to next physician visit. Follow culture results (blood and sputum) as out patient w/ primary physician. Sleep study as outpatient and Dr. Soliman. History of Present Illness Patient complains of: Chest pain History of Present Illness: MARIAN DENISE is a 41 year old female, with diabetes mellitus as well as hypertension who developed Elise's palsy requiring steroids and subsequently blood sugar elevated percentage to the hospital with chest pain associated with coughing noted to have blood sugar in the 500s and low bicarbonate level. The patient was referred for admission for DKA. Started on insulin drip and was admitted. For details please refer to history and physical examination performed by the admitting physician. Hospital Course Hospital Course: The patient was admitted to [facility]. The patient was started on insulin drip. Blood sugars were monitored hourly and when the blood sugar dropped below 200 the patient's intravenous fluid was changed to dextrose containing solution. Patient was hydrated with normal saline initially and potassium was monitored and replacements were given for hypokalemia. Patient's blood sugar eventually normalized and insulin drip discontinued. Patient apparently has not been on insulin at home. She recently was on steroids for hives and eventually made her sugar abnormal. The patient was began on Amaryl and blood sugar improved. She was on metformin however her bicarbonate level was low and she has normal anion gap. Patient was advised to discontinue the metformin. Course was noted for chest pain coughing and pleurisy. Cardiology was consulted and a stress test was performed showing no reversible ischemia. The patient chest x-ray was obtained and repeated and showed a possible infiltrate in the left lingula likely pneumonia. Patient was begun on antibiotic. Her initial tachycardia on presentation improved. She was placed on antitussives and medications, and as needed bronchodilators. She started to improve and wanted to go home and continue treatment on an outpatient basis. Room air oxygenation was obtained and it was greater than 90%. The patient was advised to rest at home for another week, measure blood sugar 3 times a day and record and bring to next physician visit. Patient was agreeable with the plan. She was eventually discharged home with above instructions. Physical Exam Vital Signs: Temp Pulse Resp BP Pulse Ox 98.8 F 98 16 107/67 98 11/28/16 11:25 11/28/16 11:57 11/28/16 11:57 11/28/16 11:25 11/28/16 11:57 Intake & Output 11/27/16 11/28/16 11/29/16 06:59 06:59 06:59 Intake Total 1275 4940 Output Total 6800 Balance 1275 -1860 Weight 98.1 kg General appearance: PRESENT: no acute distress, cooperative, obese Head exam: PRESENT: normocephalic Eye exam: PRESENT: EOMI Mouth exam: PRESENT: moist, neck supple Neck exam: ABSENT: JVD Respiratory exam: PRESENT: rhonchi - few L>R. ABSENT: wheezes Cardiovascular exam: PRESENT: RRR. ABSENT: gallop GI/Abdominal exam: PRESENT: soft. ABSENT: distended, tenderness Extremities exam: ABSENT: pedal edema Neurological exam: PRESENT: alert, awake, oriented to person, oriented to place , oriented to time, oriented to situation Skin exam: PRESENT: dry, warm. ABSENT: cyanosis Results Laboratory Results: 11/27/16 05:57 11/28/16 13:18 11/27/16 11/27/16 11/28/16 17:43 21:41 01:12 Sodium 133.0 L 133.9 L 135.9 L Potassium 3.5 L 3.4 L 3.7 Chloride 104 103 103 Carbon Dioxide 16 L 17 L 19 L Anion Gap 13 14 14 BUN < 2 L < 2 L < 2 L Creatinine 0.37 L 0.37 L 0.45 L Est GFR ( Amer) > 60 > 60 > 60 Est GFR (Non-Af Amer) > 60 > 60 > 60 Glucose 254 H 238 H 221 H Calcium 8.4 8.7 8.7 11/28/16 11/28/16 11/28/16 04:55 09:11 13:18 Sodium 134.1 L 133.7 L 135.3 L Potassium 3.6 3.4 L 3.3 L Chloride 104 103 102 Carbon Dioxide 17 L 17 L 19 L Anion Gap 13 14 14 BUN < 2 L < 2 L < 2 L Creatinine 0.40 L 0.36 L 0.38 L Est GFR ( Amer) > 60 > 60 > 60 Est GFR (Non-Af Amer) > 60 > 60 > 60 Glucose 230 H 253 H 267 H Calcium 8.6 8.5 8.8 11/26/16 13:27 Troponin I < 0.012 Impressions: Chest X-Ray 11/27/16 00:00 IMPRESSION: Question lingular airspace disease atelectasis versus pneumonia. Qualifiers PATEINT BEING DISCHARGED WITH ANY OF THE FOLLOWING DIAGNOSIS?: No Plan Discharge Plan: Follow-up with primary care physician in one week. Follow-up with Dr. Soliman in 2 weeks. Time Spent: Less than 30 Minutes
[2016-11-28 15:41] VITALS: BP 137/98
== END 2016-11-28 16:26 | disposition home or self-care (01) | DRG 637 ==
LOC: ER 21:34 → EH 11-26 01:16 → OBSVTOIN 11-26 08:48 → 3W 11-26 21:00
PROVIDERS: ADMIT Family Medicine; ATTEND Family Medicine
DX: E13.10 Other specified diabetes mellitus with ketoacidosis without coma (principal); J18.9 Pneumonia, unspecified organism; D64.9 Anemia, unspecified; E87.6 Hypokalemia; I10 Essential (primary) hypertension; E66.9 Obesity, unspecified; Z79.82 Long term (current) use of aspirin; Z90.710 Acquired absence of both cervix and uterus; Z82.49 Family history of ischemic heart disease and other diseases of the circulatory system; Z68.37 Body mass index [BMI] 37.0-37.9, adult
CPT/HCPCS: 36415; 71010; 71020; 78452; 80048; 80053; 80061; 80307; 81001; 82550; 82553; 82962; 83690; 83735; 84443; 84484; 85025; 85610; 85730; 87040; 87070; 87205; 93005; 93010; 93017; 93306; 94640; A9500; J1650; J1815; J2270; J2785; J3480; J3490; J7030; J7120; Q9969

== ENCOUNTER 2019-12-22 17:59 | Emergency (ER) | payer BC ==
--- NOTE | 2019-12-22 18:31 | ER Document Report ---
ED Medical Screen (RME) - General Chief Complaint: Nausea/Vomiting/Diarrhea Stated Complaint: NAUSEA,VOMITING,DIARRHEA Time Seen by Provider: 12/22/19 18:25 Primary Care Provider: PIERRE WALDEN PA [Primary Care Provider] - Follow up as needed Mode of Arrival: Ambulatory Information source: Patient Notes: 44-year-old female presented to ED for complaint of diarrhea most of the day for very frequently that started first thing this morning. She states she is also vomited x1. She has abdominal pain to the right upper quadrant towards the middle and then just to the middle of the right side. She also has pain to the right flank area and right lower back. She denies any fevers today. She does not smoke drink or use any illicit drugs. She is a type II diabetic. She takes Trulicity, Metformin, and simvastatin for her diabetes. She has significant tenderness to the right upper quadrant all the way to the center as well as the right flank and the right upper back. She has had a hysterectomy she states she has a sliver of her right ovary. I have greeted and performed a rapid initial assessment of this patient. A comprehensive ED assessment and evaluation of the patient, analysis of test results and completion of medical decision making process will be conducted by an additional ED providers. TRAVEL OUTSIDE OF THE [place] IN LAST 30 DAYS: No - Related Data Allergies/Adverse Reactions: No Known Allergies Allergy (Verified 11/20/16 08:59) Past Medical History - Past Medical History Cardiac Medical History: Reports: Hx Hypertension Denies: Hx Congestive Heart Failure, Hx DVT, Hx Heart Attack, Hx Hypercholes terolemia, Hx Pulmonary Embolism Pulmonary Medical History: Denies: Hx Asthma, Hx COPD Neurological Medical History: Denies: Hx Seizures Endocrine Medical History: Reports: Hx Diabetes Mellitus Type 2. Denies: Hx Diabetes Mellitus Type 1, Hx Hyperthyroidism, Hx Hypothyroidism Renal/ Medical History: Denies: Hx Peritoneal Dialysis GI Medical History: Denies: Hx Cirrhosis, Hx Gastroesophageal Reflux Disease, Hx Hepatitis Musculoskeltal Medical History: Denies Hx Arthritis Skin Medical History: Denies Hx Eczema, Denies Hx Psoriasis Psychiatric Medical History: Denies: Hx Depression Infectious Medical History: Denies: Hx Hepatitis Past Surgical History: Reports: Hx Section - x3, Hx Hysterectomy - Immunizations Hx Diphtheria, Pertussis, Tetanus Vaccination: No Physical Exam - Vital signs Vitals: Temp Pulse Resp BP Pulse Ox 98.4 F 92 20 116/82 96 12/22/19 18:11 12/22/19 18:11 12/22/19 18:11 12/22/19 18:11 12/22/19 18:11 Course - Vital Signs Vital signs: Temp Pulse Resp BP Pulse Ox 98.4 F 92 20 116/82 96 12/22/19 18:11 12/22/19 18:11 12/22/19 18:11 12/22/19 18:11 12/22/19 18:11 Doctor's Discharge - Discharge Referrals: PIERRE WALDEN PA [Primary Care Provider] - Follow up as needed
[2019-12-22 19:25] LABS: ABSOLUTE EOSINOPHILS # (AUTO) 0.1 10^3/uL (0.0-0.6); ABSOLUTE LYMPHOCYTES (AUTO) 0.9 10^3/uL (0.5-4.7); ABSOLUTE MONOCYTES (AUTO) 0.6 10^3/uL (0.1-1.4); BASOPHILS % (AUTO) 0.2 % (0-2); EOSINOPHILS % (AUTO) 0.9 % (0-6); HEMATOCRIT 46.7 % (36.0-47.0); HEMOGLOBIN 16.3 g/dL (12.0-15.5); LYMPHOCYTES % (AUTO) 8.8 % (13-45); MEAN CORPUSCULAR HEMOGLOBIN 28.4 pg (27.0-33.4); MEAN CORPUSCULAR HGB CONC 34.8 g/dL (32.0-36.0); MEAN CORPUSCULAR VOLUME 82 fl (80-97); MONOCYTES % (AUTO) 5.5 % (3-13); PLATELET COUNT 297 10^3/uL (150-450); RED BLOOD COUNT 5.74 10^6/uL (3.72-5.28); RED CELL DISTRIBUTION WIDTH 13.1 % (11.5-14.0); SEGMENTED NEUTROPHILS % (AUTO) 84.6 % (42-78); TOTAL CELLS COUNTED % (AUTO) 100 %; WHITE BLOOD COUNT 10.6 10^3/uL (4.0-10.5)
[2019-12-22 19:25] LABS: APPEARANCE,URINE CLOUDY; BILIRUBIN,URINE NEGATIVE (NEGATIVE); GLUCOSE, URINE 50 mg/dL (NEGATIVE); KETONES,URINE 20 mg/dL (NEGATIVE); PROTEIN,URINE 30 mg/dL (NEGATIVE); URINE SPECIFIC GRAVITY 1.021; UROBILINOGEN,URINE NEGATIVE mg/dL (<2.0)
[2019-12-22 19:30] LABS: COLOR,URINE DARK YELLOW
[2019-12-22 19:37] LABS: ALBUMIN 5.1 g/dL (3.5-5.0); ALKALINE PHOSPHATASE 76 U/L (38-126); ANION GAP 15 (5-19); ASPARTATE AMINO TRANSFERASE 21 U/L (14-36); BILIRUBIN,DIRECT 0.1 mg/dL (0.0-0.4); BILIRUBIN,TOTAL 1.7 mg/dL (0.2-1.3); BLOOD UREA NITROGEN 14 mg/dL (7-20); CALCIUM 10.1 mg/dL (8.4-10.2); CARBON DIOXIDE 23 mmol/L (22-30); CHLORIDE 97 mmol/L (98-107); GLUCOSE 236 mg/dL (75-110); POTASSIUM 4.6 mmol/L (3.6-5.0); TOTAL PROTEIN 8.1 g/dL (6.3-8.2)
[2019-12-22] MEDS ORDERED: ONDANSETRON HCL INJ/PF 4 MG/2 ML SDV IV ONE (20:57)
[2019-12-22] MEDS ORDERED: NORMAL SALINE 1000 ML 1,000 ML IV ONE (20:57)
--- NOTE | 2019-12-22 21:10 | RADIOLOGY REPORT (SQ) ---
EXAM DESCRIPTION: Ultrasound abdomen limited Completed date and time 12/22/2019 7:37 PM CLINICAL HISTORY: 44 years Female Right upper quadrant abdominal pain nvd COMPARISON: None. TECHNIQUE: Real-time, grayscale imaging performed to evaluate the right upper quadrant. FINDINGS: Pancreas is unremarkable. Aorta is normal in caliber. Patent IVC. Fatty infiltration the liver. The liver is difficult to penetrate. Liver measures 19.3 cm. No evidence of gallbladder wall thickening or surrounding fluid. Patent hepatopedal portal vein. Common duct measures 3 mm. Right kidney is normal in size without evidence of hydronephrosis. IMPRESSION: Enlarged fatty liver No evidence of acute process
[2019-12-22] MEDS ORDERED: METOCLOPRAMIDE HCL INJ/PF 10 MG/2 ML SDV IV ONE (23:13)
[2019-12-22] MEDS ORDERED: DIPHENHYDRAMINE HCL 50 MG/ML VIAL IV ONE (23:13)
[2019-12-22] MEDS ORDERED: MORPHINE SULFATE 10 MG/ML INJ IV ONE (23:13)
--- NOTE | 2019-12-22 23:15 | ER Document Report ---
ED GI/ - General Chief Complaint: Diarrhea Stated Complaint: NAUSEA,VOMITING,DIARRHEA Time Seen by Provider: 12/22/19 18:25 Primary Care Provider: PIERRE WALDEN PA [Primary Care Provider] - Follow up as needed Mode of Arrival: Ambulatory Notes: Patient is a 44-year-old female that comes emergency department for chief complaint of vomiting, nausea, diarrhea, abdominal pain. She only vomited once but she is very nauseated, she states she had over 15 episodes of loose watery stools throughout today. She denies fevers, she denies any obvious sick contacts. She states her pain was mainly in her upper abdomen but she does feel some radiation to the back intermittently. She denies dysuria, chest pain, shortness of breath, or any other complaints. She has had a hysterectomy, has a history of type 2 diabetes and hyperlipidemia. TRAVEL OUTSIDE OF THE [place] IN LAST 30 DAYS: No - Related Data Allergies/Adverse Reactions: No Known Allergies Allergy (Verified 11/20/16 08:59) Home Medications: Synvastatin, Metformin, Trulicity Past Medical History - General Information source: Patient - Social History Smoking Status: Never Smoker Frequency of alcohol use: None Drug Abuse: None Lives with: Family Family History: CAD Patient has suicidal ideation: No Patient has homicidal ideation: No - Past Medical History Cardiac Medical History: Reports: Hx Hypertension Denies: Hx Congestive Heart Failure, Hx DVT, Hx Heart Attack, Hx Hypercholesterolemia, Hx Pulmonary Embolism Pulmonary Medical History: Denies: Hx Asthma, Hx COPD Neurological Medical History: Denies: Hx Seizures Endocrine Medical History: Reports: Hx Diabetes Mellitus Type 2. Denies: Hx Diabetes Mellitus Type 1, Hx Hyperthyroidism, Hx Hypothyroidism Renal/ Medical History: Denies: Hx Peritoneal Dialysis GI Medical History: Denies: Hx Cirrhosis, Hx Gastroesophageal Reflux Disease, Hx Hepatitis Musculoskeletal Medical History: Denies Hx Arthritis Skin Medical History: Denies Hx Eczema, Denies Hx Psoriasis Psychiatric Medical History: Denies: Hx Depression Infectious Medical History: Denies: Hx Hepatitis Past Surgical History: Reports: Hx Section - x3, Hx Hysterectomy - Immunizations Hx Diphtheria, Pertussis, Tetanus Vaccination: No Review of Systems - Review of Systems Constitutional: No symptoms reported EENT: No symptoms reported Cardiovascular: No symptoms reported Respiratory: No symptoms reported Gastrointestinal: See HPI Genitourinary: No symptoms reported Female Genitourinary: No symptoms reported Musculoskeletal: No symptoms reported Skin: No symptoms reported Hematologic/Lymphatic: No symptoms reported Neurological/Psychological: No symptoms reported Physical Exam - Vital signs Vitals: Temp Pulse Resp BP Pulse Ox 98.4 F 113 H 20 116/82 96 12/22/19 18:09 12/22/19 18:09 12/22/19 18:09 12/22/19 18:09 12/22/19 18:09 - Notes Notes: GENERAL: Somewhat ill-appearing HEAD: Normocephalic, atraumatic. EYES: Pupils equal, round, and reactive to light. Extraocular movements intact. ENT: Oral mucosa very dry, tongue midline. Oropharynx unremarkable. Airway p atent. LUNGS: Clear to auscultation bilaterally, no wheezes, rales, or rhonchi. No respiratory distress. HEART: Tachycardia, normal rhythm, no murmur ABDOMEN: Mild generalized mid to upper abdominal tenderness, nonspecific, no guarding GENITOURINARY: Deferred EXTREMITIES: Moves all 4 extremities spontaneously. No edema, normal radial and dorsalis pedis pulses bilaterally. No cyanosis. BACK: no cervical, thoracic, lumbar midline tenderness. No saddle anesthesia, normal distal neurovascular exam. Moves all extremities in full range of motion. NEUROLOGICAL: Alert and oriented x3. Normal speech. 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 PSYCH: Normal affect, normal mood. SKIN: Slightly pale Course - Re-evaluation Re-evalutation: Patient with very dry mucous membranes, she is tachycardic, she is slightly pale. However her abdomen is soft and benign with only very mild upper abdominal tenderness which is nonspecific. I did review the ultrasound which shows fatty liver but no acute findings. LFTs are borderline elevated, however based on patient's very benign abdomen I have low suspicion of acute abdomen. There is no concerning bilirubin or lipase elevation. There is some hyperglycemia with known history of diabetes, bicarbonate and anion gap are unremarkable. CBC unremarkable, hemoglobin concentrated I suspect from dehydration. Urine very dehydrated concentrated with ketones, nitrates, bacteria. Patient's diarrhea actually slowed down before I saw her, she was unable to provide us with a sample. Patient given lots of IV fluids, medications. On reevaluation she states she feels much better. Patient tolerated p.o. without any difficulty. We started her on antibiotics. I suspect a viral illness with a developing urinary tract infection and dehydration. Under evaluation patient is stating she feels completely better, discussed follow-up and return precautions. Patient is going home with her family. Patient states appreciation and agreement. Stable and well-appearing at time of discharge. - Vital Signs Vital signs: Temp Pulse Resp BP Pulse Ox 99.0 F 110 H 14 122/76 93 12/23/19 00:09 12/23/19 00:09 12/23/19 00:09 12/23/19 00:09 12/23/19 00:09 - Laboratory Result Diagrams: 12/22/19 18:32 12/22/19 18:32 Laboratory results interpreted by me: 12/22/19 12/22/19 12/22/19 18:32 18:32 18:35 WBC 10.6 H RBC 5.74 H Hgb 16.3 H Lymph % (Auto) 8.8 L Absolute Neuts (auto) 9.0 H Seg Neutrophils % 84.6 H Sodium 135.2 L Chloride 97 L Glucose 236 H Total Bilirubin 1.7 H Albumin 5.1 H Urine Protein 30 H Urine Glucose (UA) 50 H Urine Ketones 20 H Urine Nitrite (Reflex) POSITIVE H Discharge - Discharge Clinical Impression: Vomiting and diarrhea, Flank pain, Dehydration Abdominal pain Qualifiers: Abdominal location: generalized Qualified Code(s): R10.84 - Generalized abdominal pain Condition: Stable Disposition: HOME, SELF-CARE Instructions: Oral Narcotic Medication ([facility]) Additional Instructions: Your ultrasound shows a fatty liver but no other concerning findings. Continue rehydration at home. Take antibiotics for the urinary tract infection as prescribed, this could be the cause of your flank pain. I also suspect that you have a viral illness because of your persistent diarrhea earlier today. This should simply resolve with time. Take Phenergan if needed for nausea, start with bland food and slowly progress. Return if you worsen including uncontrolled vomiting, severe worsening pain, spiking fevers, or any other concerning symptoms. Prescriptions: Cephalexin Monohydrate [Keflex 500 mg Capsule] 500 mg PO BID 7 Days #14 capsule Promethazine HCl [Phenergan 25 mg Tablet] 25 mg PO Q6H PRN #15 tablet PRN Reason: Forms: Return to Work Referrals: PIERRE WALDEN PA [Primary Care Provider] - Follow up as needed
[2019-12-23 00:10] VITALS: BP 122/76
[2019-12-23] MEDS ORDERED: HYDROCODONE/ACETAMINOPHEN 5-325 MG (6 TAB/ER DISP) PO PRN (00:41)
[2019-12-23] MEDS ORDERED: FAMOTIDINE 20 MG TABLET PO ONE (00:41)
[2019-12-23] MEDS ORDERED: CEPHALEXIN 500 MG CAPSULE PO ONE (00:41)
== END 2019-12-23 01:01 | disposition home or self-care (01) ==
LOC: ER 17:59
DX: R10.84 Generalized abdominal pain (principal); E86.0 Dehydration; R19.7 Diarrhea, unspecified; R11.2 Nausea with vomiting, unspecified; R10.9 Unspecified abdominal pain; R10.10 Upper abdominal pain, unspecified; R00.0 Tachycardia, unspecified; Z90.710 Acquired absence of both cervix and uterus; Z79.899 Other long term (current) drug therapy; Z79.84 Long term (current) use of oral hypoglycemic drugs; I10 Essential (primary) hypertension; E11.9 Type 2 diabetes mellitus without complications
CPT/HCPCS: 99284; 96361; 96374; 96375; 36415; 87086; 83690; 85025; 87088; 80053; 81001; 87186; 76705; J1200; J2765; J2270; J2405; J7030